=== PATIENT | male | born 1980 | race Caucasian/White ===

== ENCOUNTER 2020-10-19 14:31 | Emergency (ER) | payer OTHER, SELFPAY ==
--- NOTE | 2020-10-19 14:36 | ED.SKABFB ---
HPI - Skin/Abscess/Foreign Bdy General Chief complaint: Wound/Laceration Stated complaint: L HAND LACERATION Time Seen by Provider: 10/19/20 14:36 Source: patient and RN notes reviewed History of Present Illness HPI narrative: Patient is a 40-year-old male who presents the urgent care with complaints of a laceration to the knuckle of the left middle digit. Patient states that occurred just prior to arrival on an old esteban can that was outside. Patient states his main concern is having a tetanus shot. Patient is unsure when his last tetanus was. Denies of any other acute complaints or injuries. Patient placed in napkin over the injury prior to arrival and bleeding is currently controlled. No acute distress noted. Patient aware of the plan of care. Some parts of this dictation were generated by voice recognition software and may contain typographical and/or grammatical inaccuracies. Related Data Allergies Allergy/AdvReac Type Severity Reaction Status Date / Time No Known Allergies Allergy Verified 10/19/20 14:36 Review of Systems Review of Systems: Narrative: CONSTITUTIONAL: Denies fever, chills, or sweats. EYES: Denies visual changes, redness, or discharge. ENT: Denies rhinorrhea, congestion, sore throat, or otalgia. CARDIOVASCULAR: Denies chest pain, palpitations, or edema. RESPIRATORY: Denies cough or dyspnea. GASTROINTESTINAL: Denies abdominal pain, nausea, vomiting, or diarrhea. GENITOURINARY: Denies dysuria or hematuria. SKIN: Reports of a laceration to the left middle knuckle MUSCULOSKELETAL: Denies back pain, joint pain, or myalgia. NEUROLOGIC: Denies headache, numbness, or weakness. All other systems reviewed are negative, except as documented in HPI. [facility] Past Medical History Medical History (Updated 10/19/20 @ 14:44 by KATRINA Rosario) HLD (hyperlipidemia) Family History Family History Father Family history of diabetes mellitus in first degree relative Mother Family history of diabetes mellitus in first degree relative Family history of heart disease in male family member before age 55 Social History Social History Smoking status: Never smoker Alcohol intake: current Comments At the time of my signature, I reviewed and agree with the nursing past medical, surgical, social, and family history. There is no relevant family history pertinent to the patient complaint. Exam Narrative: Exam Narrative: GENERAL: This is a well-nourished, well-developed patient, appears anxious HEAD: normocephalic, atraumatic. EYES: PERRL. Sclera clear/white. Vision is grossly intact. EARS: External ears normal NOSE: External nose normal with no obvious nasal discharge, nares without redness, no rhinorrhea. THROAT: Mucous membranes moist NECK: Neck supple SKIN: Superficial 1 cm linear laceration to the MCP of the left middle digit, bleeding controlled prior to arrival. NEURO: awake, alert, and oriented to person, place and time. There were no obvious focal neurologic abnormalities. EXTREMITIES: No clubbing, cyanosis, or edema. Positive strong left radial pulse with capillary refill less than 2 seconds. Range of motion to left hand/fingers within normal limits. Course Vital Signs Vital signs: Vital Signs Temperature 97.5 F L 10/19/20 14:37 Pulse Rate 104 H 10/19/20 14:37 Respiratory Rate 10/19/20 14:37 Blood Pressure 118/84 10/19/20 14:37 Pulse Oximetry 100 10/19/20 14:37 Temperature 97.5 F L 10/19/20 14:37 Pulse Rate 104 H 10/19/20 14:37 Respiratory Rate 10/19/20 14:37 Blood Pressure 118/84 10/19/20 14:37 Pulse Oximetry 100 10/19/20 14:37 Reviewed Procedures Laceration Laceration 1: Site: hand (MCP of left middle digit) Side (If applicable): left Size (cm): 1 Description: linear Pre-repair: irrigated (Cleansed/irrigated
[2020-10-19 14:37] VITALS: BP 118/84; PULSE 104; RESP 20; TEMP 36.4; O2SAT 100
[2020-10-19] MEDS: TETANUS,DIPHTHERIA,AC PERTUSSIS ADULT (0.5 ML) BOOSTRIX IM (14:49)
== END 2020-10-19 15:22 | disposition home or self-care (01) ==
PROVIDERS: Emergency Provider Nurse Practitioner Family; PCP Emergency Medicine
DX: S61.213A Laceration without foreign body of left middle finger without damage to nail, initial encounter (principal); W45.8XXA Other foreign body or object entering through skin, initial encounter; Z23 Encounter for immunization; E78.5 Hyperlipidemia, unspecified
CPT/HCPCS: 12001; 90471; 90715; 99212; G0463

== ENCOUNTER 2021-09-06 10:36 | Emergency (ER) | payer OTHER, SELFPAY ==
--- NOTE | ~2021-09-06 | US_ITS ---
EXAMINATION: US scrotum doppler EXAM DATE: 09/06/2021 11:33 INDICATION: Left testicular injury, pain. TECHNIQUE: Multiple grayscale and Doppler images of the testicles and scrotum were obtained bilateral ly. There is no prior study for comparison. FINDINGS: Right testicle measures 4.4 x 3.5 x 2.7 cm and is morphologically normal. Low resistance Doppler brittany w confirmed. The epididymis is unremarkable. There is no hydrocele or varicocele. Left testicle measures 4.3 x 3.3 x 2.9 cm and is morphologically normal. Low resistance Doppler flow confirmed. The epididymis is unremarkable. There is no hydrocele or varicocele. IMPRESSION: No testicular rupture. Unremarkable testicular/scrotal ultrasound exam. Reviewed, dictated and finalized at location A. [employer]EL PLANT MANAGER IMPRESSION: No testicular rupture. Unremarkable testicular/scrotal ultrasound e xam.
--- NOTE | ~2021-09-06 | XR_ITS ---
EXAMINATION: XR abdomen/kub 1V EXAM DATE: 09/06/2021 13:11 INDICATION: Left flank pain. TECHNIQUE: Frontal projection of the upper abdomen, frontal projection lower abdomen/pelvis for inter pretation. Correlation is made to CT scan same date. FINDINGS: Left UPJ 7 mm stone identified, indicated. No other suspicious calcifications. Nonobstruct vicky bowel gas pattern. There are no osseous abnormalities identified. IMPRESSION: Left UPJ 7 mm stone. Reviewed, dictated and finalized at location A. TENDER IMPRESSION: Left UPJ 7 mm stone.
--- NOTE | ~2021-09-06 | CT_ITS ---
EXAMINATION: CT abdomen pelvis wo con EXAM DATE: 09/06/2021 12:24 INDICATION: left sided flank pain radiating to the abdomen. TECHNIQUE: Spiral CT of the abdomen and pelvis was performed without contrast. Axial, coronal and sag ittal images were reviewed. The dose-length product (DLP) for this examination was 843.68 mGy-cm. T he exposure was tailored according to patient size (auto mA exposure control), and iterative reconstr uction (ASIR) was used as additional dose reduction technique. Comparison is made to prior examinatio n from 07/30/2015. FINDINGS: There is a left ureteropelvic junction stone measuring 7 mm. There is mild left-sided hydro nephrosis. No other genitourinary calcifications. The prostate is unremarkable. The bladder is unre markable. There is hepatic steatosis without suspicious focal lesion identified. Spleen, adrenal gla nds, pancreas are unremarkable. Gallbladder is unremarkable. No biliary obstruction. There is no r etroperitoneal or pelvic lymphadenopathy. There are no findings to suggest appendicitis. The stomach and small bowel are unremarkable. There is expected amount of colonic stool. No free intraperitoneal gas. The heart is normal in size. T here are no pericardial or pleural effusions. The lung bases are unremarkable. There are no osteobl astic or osteolytic lesions identified. IMPRESSION: Left UPJ 7 mm stone, mild obstructive nephropathy. consultants would appreciate KUB as baseline. Reviewed, dictated and finalized at location A. OR ENERGY ANALYST IMPRESSION: Left UPJ 7 mm stone, mild obstructive nephropathy. consultants ngozi chavira appreciate KUB as baseline.
[2021-09-06 10:46] VITALS: BP 153/99; PULSE 76; RESP 20; TEMP 37; O2SAT 100
[2021-09-06 11:11] VITALS: BP 141/96; PULSE 75; RESP 17; O2SAT 98
--- NOTE | 2021-09-06 11:11 | ED.MALEGU ---
HPI - Male Genitourinary General Chief complaint: Unspecified Stated complaint: flank pain Time Seen by Provider: 09/06/21 10:58 Source: patient Mode of arrival: ambulatory Limitations: no limitations History of Present Illness HPI Narrative: This is a 41-year-old male that presents to the emergency department after an injury 3 days ago with left testicular pain. Reports his cat stepped on his testicle. Since he has been having pain in the area. Reports today the pain is started to radiate to the left flank. He took anti-inflammatories this morning with little relief. The pain is sharp in nature. Denies fever, vomiting, dysuria, hematuria. Related Data Allergies Allergy/AdvReac Type Severity Reaction Status Date / Time No Known Allergies Allergy Verified 08/05/21 15:55 Review of Systems Review of Systems: CONSTITUTIONAL: Denies fever GASTROINTESTINAL: Reports abdominal pain. Denies nausea, vomiting GENITOURINARY: Denies dysuria or hematuria. All systems reviewed & are unremarkable except as noted in HPI and below PMFSH Past Medical History Medical History (Updated 09/06/21 @ 14:40 by Simin Epstein PA-C) Diabetes mellitus HLD (hyperlipidemia) Family History Family History Father Family history of diabetes mellitus in first degree relative Mother Family history of diabetes mellitus in first degree relative Family history of heart disease in male family member before age 55 Social History Social History Smoking status: Never smoker Alcohol intake: current Exam Narrative: GENERAL: Well-appearing, well-nourished, and in no acute distress. HEAD: Normocephalic, atraumatic. EYES: EOMI. CHEST: Clear to auscultation. No respiratory distress. No wheezes rales or rhonchi HEART: Regular rate and rhythm. No murmur heard. Normal peripheral pulses. ABDOMEN: Soft, nontender, nondistended, normal active bowel sounds. EXTREMITIES: Normal range of motion. No edema. SKIN: Warm, dry, no rash. NEURO: No focal deficits. Alert and oriented x3. PSYCH: Normal mood and affect MALE GENITAL: Normal appearing genitalia. No testicular swelling or redness noted. No abnormal urethral discharge Course Consultations Consultation #1: Spoke with Dr. Camarena about patient and work-up. Patient will be given option to stay for pain control and stent placement, or to be discharged with pain medication and follow-up outpatient Date: 09/06/21 Time: 13:38 Vital Signs Vital signs: Vital Signs Temperature 98.6 F 09/06/21 10:46 Pulse Rate 76 09/06/21 10:46 Respiratory Rate 20 09/06/21 10:46 Blood Pressure 153/99 H 09/06/21 10:46 Pulse Oximetry 100 09/06/21 10:46 Temperature 98.6 F 09/06/21 10:46 Pulse Rate 75 09/06/21 11:11 Respiratory Rate 17 09/06/21 11:11 Blood Pressure 141/96 H 09/06/21 11:11 Pulse Oximetry 98 09/06/21 11:11 MDM - Male Genitourinary MDM Narrative Medical decision making narrative: Patient presents to the emergency department for left flank pain, also noting testicular injury. Patient's vitals are stable. He is afebrile and nontoxic-appearing. Testicular ultrasound is without acute findings. CBC is without leukocytosis. Metabolic panel without concerning findings. UA with greater than 75 red blood cells, and 16-[address] scan of the abdomen and pelvis shows a left UPJ 7 mm stone with mild obstructive nephropathy. Abdomen x-ray positively identifies the stone. Spoke with Dr. Camarena about patient and work-up. Patient will be given option to stay for pain control and stent placement, or to be discharged with pain medication and follow-up outpatient. Patient would like to be discharged for outpatient follow-up. He will be given urine strainer, Flomax, antibiotic and pain medication. He was given warnings to return to the ER Lab Data Attestation: I
[2021-09-06] MEDS: MORPHINE SULFATE (*CRX) 2 MG/ML INJ IV PUSH ×2 (11:44→13:40)
[2021-09-06] MEDS: ONDANSETRON INJ 4 MG/2 ML VIAL IV PUSH (11:44)
[2021-09-06 11:55] LABS: Basophils Percent Auto 0.5 % (0.2-1.2); Eosinophils Absolute Auto 0.1 K/mm3 (0-0.3); Eosinophils Percent Auto 1.6 % (0-4.4); Hemoglobin 14.7 g/dL (14.0-18.0); Immature Granulocyte Absolute 0.06 K/mm3 (0.00-0.031); Immature Granulocyte Percent A 0.8 % (0-0.5); Lymphocytes Absolute Auto 2.21 K/mm3 (0.9-3.2); Lymphocytes Percent Auto 27.9 % (18.3-44.2); Mean Corpuscular HGB Conc 36.8 g/dl (32-36); Mean Corpuscular Hemoglobin 29.5 pg (26-34); Mean Corpuscular Volume 80.3 fl (80-100); Mean Platelet Volume 9.5 fl (7.4-10.4); Monocytes Absolute Auto 0.6 K/mm3 (0.1-0.6); Monocytes Percent Auto 7.4 % (2.6-8.5); Neutrophils Absolute Auto 4.9 K/mm3 (1.3-6.7); Neutrophils Percent Auto 61.8 % (45.5-73.1); Platelet Count Result 235 k/mm3 (150-375); Red Blood Count 4.98 M/mm3 (4.6-6.20); Red Cell Distribution Width 11.9 % (11.5-14.5); White Blood Count 7.9 K/mm3 (4.5-10.0)
[2021-09-06 12:02] LABS: Anion Gap 15 mmol/L (8-16); Blood Urea Nitrogen 12 mg/dL (9-20); Calcium 9.8 mg/dL (8.4-10.2); Carbon Dioxide 20 mmol/L (22-30); Chloride 101 mmol/L (98-107); Estimated CRCL calculation 105 ml/min; Estimated Glomerular Filt Rate > 60; Glucose 277 mg/dL (65-110); Potassium 3.7 mmol/L (3.4-5.0); Sodium 136 mmol/L (137-145)
[2021-09-06 12:37] LABS: Add Urine Microscopic? YES; Amorphous Sediment Urine Few; Appearance Urine Cloudy (Clear); Bacteria Urine Trace /hpf; Bilirubin Urine Negative (Negative); Blood Urine 3+ (Negative); Color Urine Yellow (Yellow); Glucose Urine UA 3+ mg/dL (Negative); Ketones Urine Negative (Negative); Leukocyte Esterase Ur Negative LEU/UL (Negative); Mucus Urine Rare /lpf; Nitrate Urine Negative (Negative); Protein Urine 1+ mg/dL (Negative); RBC Urine >75 /hpf (0-2); Specific Grav Ur 1.017 (1.001-1.035); Urobilinogen Urine Negative mg/dL (<2.0); WBC Urine 16-20 /hpf
[2021-09-06 13:00] VITALS: BP 133/95; PULSE 75; RESP 18; O2SAT 97
== END 2021-09-06 14:58 | disposition home or self-care (01) ==
PROVIDERS: Physician Assistant; Emergency Provider Emergency Medicine; PCP Emergency Medicine
DX: N13.8 Other obstructive and reflux uropathy (principal); N20.1 Calculus of ureter; E11.9 Type 2 diabetes mellitus without complications; E78.5 Hyperlipidemia, unspecified; Z79.84 Long term (current) use of oral hypoglycemic drugs
CPT/HCPCS: 36415; 74018; 74176; 76870; 80048; 81001; 85025; 87086; 93976; 96374; 96375; 96376; 99284; J0131; J2270; J2405

== ENCOUNTER → 2022-05-04 13:05 | Outpatient (CLI) | payer OTHER, SELFPAY ==
--- NOTE | ~2022-05-04 | US_ITS ---
EXAMINATION: US retroperitoneal comp DATE: 05/04/2022 13:24 INDICATION: Left ureteral stone TECHNIQUE: Multiple ultrasound grayscale images of the kidneys were obtained. COMPARISON: CT abdomen pelvis dated 09/06/2021 FINDINGS: The right kidney measures 12.4 x 5.3 x 6.6 cm. The left kidney measures 12.5 x 6.3 x 5.6 cm. The kidn eys demonstrate normal echogenicity. There is no hydronephrosis in either kidney. No stones identifi ed. The bladder is normal. Diffuse increased hepatic echogenicity consistent with diffuse hepatic antonino atosis. IMPRESSION: 1. Normal kidneys without hydronephrosis. 2. Diffuse hepatic steatosis. Reviewed, dictated and finalized at location A.
== END ==
PROVIDERS: PCP Emergency Medicine; Visit Provider Urology
DX: N20.1 Calculus of ureter (principal); K76.0 Fatty (change of) liver, not elsewhere classified
CPT/HCPCS: 76770

== ENCOUNTER → 2023-01-07 14:54 | Outpatient (CLI) | payer BC, SELFPAY ==
--- NOTE | ~2023-01-07 | XR_ITS ---
Supine and upright views of the abdomen Clinical history: Ureteral stone COMPARISON: 09/06/2021 Findings: Bowel gas pattern is nonspecific. No evidence for obstruction or free air. No abnormal mass lesion or calcification is seen. Osseous structures are intact. Impression: No significant abnormality is seen. Reviewed, dictated and finalized at [facility]. Impression: No significant abnormality is seen.
--- NOTE | ~2023-01-07 | CT_ITS ---
EXAMINATION: CT abdomen pelvis wo con DATE: 01/07/2023 15:17 INDICATION: Ureteral calculus TECHNIQUE: Computed tomography (CT) of the abdomen and pelvis was performed without intravenous contr ast. Automated exposure control and iterative reconstruction technique were employed. Exam dose: 738 .33 mGy-cm total exam DLP. COMPARISON: 09/06/2021 CT abdomen pelvis FINDINGS: The lung bases are clear of infiltrate or consolidation. Heart size is normal. No pericardi al or pleural effusion. Diffuse hepatic steatosis. No hepatic, splenic, pancreatic, adrenal or renal space-occupying mass les ion is evident on this limited noncontrast examination. The gallbladder is present. No bile duct or pancreatic duct dilatation. There is a pinpoint calculus at the left ureterovesical junction. No other urinary tract calculus or hydroureteronephrosis. The urinary bladder is otherwise unremarkable. Normal prostate gland. Normal caliber of the abdominal aorta. No intraperitoneal or retroperitoneal or pelvic mass lesion or adenopathy or ascites. Occasional colonic diverticula; no CT evidence of diverticulitis. No bowel obstruction, bowel wall th ickening, pneumatosis or intraperitoneal free air. No evidence of appendicitis. Included skeletal structures are unremarkable. IMPRESSION: Incomplete left ureterovesical junction calculus Hepatic steatosis Minimal colonic diverticulosis Reviewed, dictated and finalized at Location A. Reviewed, dictated and finalized at location A.
== END ==
PROVIDERS: PCP Urology; Visit Provider Urology
DX: N20.1 Calculus of ureter (principal); K76.0 Fatty (change of) liver, not elsewhere classified
CPT/HCPCS: 74018; 74176

== ENCOUNTER → 2023-03-31 12:00 | Outpatient (CLI) | payer BC, SELFPAY ==
--- NOTE | ~2023-03-31 | US_ITS ---
EXAMINATION: US right upper quadrant DATE: 04/01/2023 14:43 INDICATION: R10.9 - Unspecified abdominal pain TECHNIQUE: Multiple grayscale and Doppler ultrasound images of the right upper quadrant were obtained . COMPARISON: Noncontrast CT abdomen and pelvis 01/07/2023. FINDINGS: Heterogeneous, nodular echotexture of the pancreas. The liver is enlarged with increased ec hogenicity and normal echotexture. No surface nodularity. Normal hepatopetal flow in the main portal vein. The gallbladder is normal with no abnormal wall thickening, pericholecystic fluid or stones. Th e common bile duct measures 3 mm. There was no sonographic Davis sign. IMPRESSION: Heterogeneous pancreatic echogenicity, correlate with pancreatic labs and consider CT of the pancreas for further evaluation. Echogenic liver, most commonly due to steatosis but also can be seen with he patitis and fibrosis. Reviewed, dictated and finalized at location K. IMPRESSION: Heterogeneous pancreatic echogenicity, correlate with pancreatic labs and consi luke CT of the pancreas for further evaluation. Echogenic liver, most commonly d ue to steatosis but also can be seen with hepatitis and fibrosis.
== END ==
PROVIDERS: PCP Emergency Medicine; Visit Provider Emergency Medicine
DX: R10.9 Unspecified abdominal pain (principal)
CPT/HCPCS: 76705

== ENCOUNTER 2023-05-14 13:40 | Outpatient (CLI) | payer BC, SELFPAY ==
--- NOTE | ~2023-05-14 | XR_ITS ---
XR abdomen/kub 1V 05/14/2023 14:12 INDICATION: Left ureteral stone TECHNIQUE: KUB COMPARISON: 01/07/2023 FINDINGS: Bowel gas pattern is normal. There is no evidence of free air, mass, organomegaly, ascites or obstruction. No abnormal calculi are seen. The bones appear intact. IMPRESSION: 1: No acute abdominal abnormality identified. Reviewed, dictated and finalized at location A.
--- NOTE | ~2023-05-14 | US_ITS ---
US retroperitoneal comp 05/14/2023 14:14 Procedure: Realtime transabdominal ultrasound of the kidneys and bladder. Indication: Ureteral stone Comparison: 03/31/2023 Findings: Renal echotexture is normal bilaterally without hydronephrosis, contour deforming mass. The re is an echogenic focus in the right kidney measuring 5 mm, suspicious for nonobstructing right martin l stone. The right kidney measures 12.6 cm and left kidney measures 12.2 cm. Bladder within normal l imits. Impression: 1: Possible 5 mm nonobstructing right renal stone. Consider correlation with CT. Reviewed, dictated and finalized at location A. Impression: 1: Possible 5 mm nonobstructing right renal stone. Consider correlation with CT .
== END 2023-05-14 13:41 | disposition home or self-care (01) ==
PROVIDERS: PCP Emergency Medicine; Visit Provider Urology
DX: N20.1 Calculus of ureter (principal)
CPT/HCPCS: 74018; 76770

== ENCOUNTER 2023-06-25 03:58 | Day surgery (SDC) | payer BC, SELFPAY ==
[2023-06-11 15:39] VITALS: BMI 29.1
[2023-06-25 07:43] VITALS: BP 126/93; PULSE 81; RESP 18; TEMP 36.4; O2SAT 100; BMI 29.1
[2023-06-25] MEDS: LACTATED RINGERS 1,000 ML 150 ML IV CONT (07:45)
[2023-06-25 07:56] LABS: Glucose Point of Care 196 mg/dl (65-105)
--- NOTE | 2023-06-25 08:08 | WPDANESEPPF ---
Anes - Initial Pre Proc Eval Procedure: Operation Date: 06/25/23 08:30 Proposed Procedures p Esophagogastroduodenoscopy - Daniel Vela MD Date/Time: 06/25/23 08:08 Surgeon: Daniel Vela MD Pre Op Diagnosis: Belching, GERD Patient Data Age: 43 Gender: M Height: 1.75 m Weight: 89.5 kg Last Vital Signs Temp 97.6 F 06/25/23 07:43 Pulse 81 06/25/23 07:43 Resp 18 06/25/23 07:43 BP 126/93 H 06/25/23 07:43 Pulse Ox 100 06/25/23 07:43 O2 Del Method Room Air 06/25/23 07:43 Allergies Allergy/AdvReac Type Severity Reaction Status Date / Time No Known Allergies Allergy Verified 06/25/23 07:41 Home Medications Medication Instructions Recorded Confirmed Type blood sugar diagnostic (OneTouch #100 ea 08/08/21 06/25/23 Rx Verio test strips) sitagliptin phosphate 50 mg tablet 50 mg PO DAILY #90 tabs 07/27/22 06/25/23 Rx (Januvia) niacin 1,000 mg tablet,extended See Rx Instructions .Route 11/03/22 06/25/23 Rx release .COMPLEX #90 tabs simvastatin 20 mg tablet 20 mg PO DAILY #90 tabs 11/04/22 06/25/23 Rx semaglutide 1 mg/dose (4 mg/3 mL) 1 mg (0.75 mL) subcut WEEKLY #12 mL 03/05/23 06/25/23 Rx subcutaneous pen injector (Ozempic) fenofibrate nanocrystallized 145 See Rx Instructions .Route 05/03/23 06/25/23 Rx mg tablet .COMPLEX #90 tabs metformin 1,000 mg tablet See Rx Instructions .Route 05/03/23 06/25/23 Rx .COMPLEX #180 tabs apple cider vinegar 500 mg tablet 500 - 1,000 mg PO DAILY 06/11/23 06/25/23 History multivitamin 1 tablet PO DAILY 06/11/23 06/25/23 History omega-3 fatty acids-vitamin E 1 cap PO DAILY 06/11/23 06/25/23 History 1,000 mg capsule Laboratory Tests 06/25/23 07:54 POC Capillary Glucose 196 H mg/dl (65-105) Patient hx anesthesia problems: none Family hx anesthesia problems: none Results Review: All pre-operative results and documents have been reviewed as part of the pre-operative evaluation. [facility] Past Medical History Medical History Diabetes mellitus HLD (hyperlipidemia) Family History Family History Father Family history of diabetes mellitus in first degree relative Mother Family history of diabetes mellitus in first degree relative Family history of heart disease in male family member before age 55 Social History Social History Smoking status: Never smoker Alcohol intake: current Substance use: never Substance use type: does not use Lack of Transportation: No Lack of Food: Never True Current Housing: I Have Housing Concerned About Future Housing: No Difficulty Paying Gas/Electric Bills: No Difficulty Paying for Meds: No Currently Unemployed: No Education: Decline to Answer Difficulty w/ Childcare or Family Care: No Living arrangements: with family Spiritual care concerns: No Anes - Eval Final PreProcedure Day of Procedure 06/25/23 08:08 Patient weight: obese Heart: regular rate and rhythm Lungs: clear to auscultation Airway: Mallampati scale class II Neurological: alert and oriented Last oral intake: >/= 8 hours ASA classification: II Emergent: no Anesthetic plan: proceed Anesthesia type and monitoring: general GIVS and standard monitoring Results Review: All pre-operative results and documents have been reviewed as part of the pre-operative evaluation. Informed Consent: The patient's anesthetic plan and its attendant risks and benefits were discussed with the patient/family/POA. Questions were solicited and answers provided to the satisfaction of the patient/family/POA.
--- NOTE | 2023-06-25 08:20 | PM.HPGS ---
History of Present Illness History of Present Illness Consent: Risks, benefits, and alternatives have been discussed and questions answered. Patient agrees to proceed with procedure. Chief complaint: Belching, GERD Narrative: Vern Andrews is a 43 year old male Presents for EGD. Patient complains of excess belching. He complains of abdominal bloating. Epigastric discomfort. Sometimes the belches are foul smelling. Patient presents today for EGD. Patient denies any weight loss. Recently advised to have gastric emptying scan this not yet been accomplished. Review of Systems Review of Systems: Review of systems noncontributory. [facility] Past Medical History Medical History Diabetes mellitus HLD (hyperlipidemia) Family History Family History Father Family history of diabetes mellitus in first degree relative Mother Family history of diabetes mellitus in first degree relative Family history of heart disease in male family member before age 55 Social History Social History Smoking status: Never smoker Alcohol intake: current Substance use: never Substance use type: does not use Lack of Transportation: No Lack of Food: Never True Current Housing: I Have Housing Concerned About Future Housing: No Difficulty Paying Gas/Electric Bills: No Difficulty Paying for Meds: No Currently Unemployed: No Education: Decline to Answer Difficulty w/ Childcare or Family Care: No Living arrangements: with family Spiritual care concerns: No Meds Home Medications and Allergies Home Medications Medication Instructions Recorded Confirmed Type blood sugar diagnostic (OneTouch #100 ea 08/08/21 06/25/23 Rx Verio test strips) sitagliptin phosphate 50 mg tablet 50 mg PO DAILY #90 tabs 07/27/22 06/25/23 Rx (Januvia) niacin 1,000 mg tablet,extended See Rx Instructions .Route 11/03/22 06/25/23 Rx release .COMPLEX #90 tabs simvastatin 20 mg tablet 20 mg PO DAILY #90 tabs 11/04/22 06/25/23 Rx semaglutide 1 mg/dose (4 mg/3 mL) 1 mg (0.75 mL) subcut WEEKLY #12 mL 03/05/23 06/25/23 Rx subcutaneous pen injector (Ozempic) fenofibrate nanocrystallized 145 See Rx Instructions .Route 05/03/23 06/25/23 Rx mg tablet .COMPLEX #90 tabs metformin 1,000 mg tablet See Rx Instructions .Route 05/03/23 06/25/23 Rx .COMPLEX #180 tabs apple cider vinegar 500 mg tablet 500 - 1,000 mg PO DAILY 06/11/23 06/25/23 History multivitamin 1 tablet PO DAILY 06/11/23 06/25/23 History omega-3 fatty acids-vitamin E 1 cap PO DAILY 06/11/23 06/25/23 History 1,000 mg capsule Allergies Allergy/AdvReac Type Severity Reaction Status Date / Time No Known Allergies Allergy Verified 06/25/23 07:41 Vital Signs Vital Signs - 24 hr 06/25/23 07:43 Temperature 97.6 F Pulse Rate 81 Respiratory Rate 18 Blood Pressure 126/93 H Pulse Oximetry 100 Oxygen Delivery Room Air Exam Narrative: Physical exam reveals patient to be alert. Vital signs stable. HEENT exam is unremarkable. Patient is anicteric. Lungs are clear to auscultation and percussion. Heart is without murmur or extra sounds. Abdomen bowel sounds are present soft nontender with no organomegaly. Assessment and Plan Assessment and plan (1) Belching: Code(s): R14.2 - Eructation Status: Acute Assessment and Plan: Because of patient's frequent belching and eructations will plan gastric emptying scan. EGD to be performed today. Recommend trial of Gas-X and the Prilosec to be taken daily. Gastric emptying scan will be performed after this is accomplished trial of Reglan may be of some help. (2) GERD (gastroesophageal reflux disease): Code(s): K21.9 - Gastro-esophageal reflux disease without esophagitis Status: Acute
[2023-06-25 08:44] VITALS: BP 122/82; PULSE 82; RESP 18; O2SAT 97
[2023-06-25 08:54] VITALS: BP 123/86; PULSE 70; RESP 18; O2SAT 96
[2023-06-25 09:04] VITALS: BP 126/91; PULSE 80; RESP 18; O2SAT 97
== END 2023-06-25 09:12 | disposition home or self-care (01) ==
PROVIDERS: PCP Emergency Medicine; Visit Provider Internal Medicine Gastroenterology
PROC: 0DJ08ZZ Inspection of Upper Intestinal Tract, Via Natural or Artificial Opening Endoscopic (ICD-10-PCS; CPT 43235; principal; 2023-06-25 08:30)
DX: K21.00 Gastro-esophageal reflux disease with esophagitis, without bleeding (principal); K31.84 Gastroparesis; E11.9 Type 2 diabetes mellitus without complications; E78.5 Hyperlipidemia, unspecified; Z79.899 Other long term (current) drug therapy; Z79.84 Long term (current) use of oral hypoglycemic drugs; E66.9 Obesity, unspecified; Z68.29 Body mass index [BMI] 29.0-29.9, adult
CPT/HCPCS: 43235; 82948; J2704; J7120

== ENCOUNTER 2023-07-09 07:53 | Outpatient (CLI) | payer BC, SELFPAY ==
--- NOTE | ~2023-07-09 | NM_ITS ---
EXAM: NM gastric emptying study DATE: 07/09/2023 13:13 INDICATION: Eructation. Bloating. TECHNIQUE: A gastric emptying study was performed using the methodology of Shannon FLOWERS, et al. J Nucl Med 2007; 48:568-572. The patient was given a meal consisting of 2 scrambled eggs labeled with 0.962 mCi Tc-99m sulfur colloid, 2 slices of toast, two packages of jam, and approximately 120 mL of water . Simultaneous anterior and posterior 1-min images of the abdomen were obtained with the patient supi ne at multiple time points over a total period of 4 hours. The geometric mean of anterior and posteri or views was determined, and the percentage retention was calculated for each time point. COMPARISON: None. FINDINGS: Gastric retention of the radiotracer-labeled meal was 56%, 52%, and 28% at the 1-hour, 2-hour, and 4- hour time points, respectively. With this technique, apparent rapid gastric emptying is suggested by <30% gastric retention at 1 hour. Delayed gastric emptying is defined by gastric retention of >90% at 1 hour, >60% retention at 2 hours, or >10% retention at 4 hours. IMPRESSION: 1. Delayed gastric emptying. Reviewed, dictated and finalized at location A.
== END 2023-07-09 07:54 | disposition home or self-care (01) ==
PROVIDERS: PCP Emergency Medicine; Visit Provider Internal Medicine Gastroenterology
DX: E11.9 Type 2 diabetes mellitus without complications (principal); R14.2 Eructation; K30 Functional dyspepsia
CPT/HCPCS: 78264; A9541

== ENCOUNTER 2025-05-07 01:27 | Day surgery (SDC) | payer BC, SELFPAY ==
[2025-03-30 12:43] VITALS: BMI 29.2
--- OUTSIDE RECORDS SUMMARY | 2025-05-07 01:30 | XMS_ITS | Clinical Summary ---
Author Organization [facility] Address [facility] [place] [address] Care Team Providers Care Yard Associate Name Role Phone Edgar Rizo MD Primary Care Provider [phone] Social History Tobacco Use Types Packs/Day Years Used Date Smoking Tobacco: Never Assessed Sex and Gender Information Value Date Recorded Sex Assigned at Not on file Legal Sex Male 11:37 AM CDT Gender Identity Not on file Sexual Orientation Not on file Plan of Treatment Health Maintenance Due Date Last Done Comments Colorectal Cancer Screening Colonoscopy (10 Years) 1979 Annual Physical 1982 Hepatitis C 1997 Hepatitis B Vaccines (1 of 3 - 19+ 3-dose series) 1998 COVID-19 Vaccine (2023-2 5 season) 2024 07/24/2022, 08/18/2021, 12/23/2020 DTaP, Tdap and Td Vaccines ( 2 - Td or Tdap) 10/19/2030 10/19/2020 HPV Vaccines Aged Out No longer eligi ble based on patient's age to complete this topic Meningococcal B Vaccine Aged Out No l onger eligible based on patient's age to complete this topic Meningococcal Vaccine Aged Out No phu pankaj eligible based on patient's age to complete this topic Pneumococcal Vaccine: Pediatrics (0 to 5 Years) and At-Risk Patients (6 to 49 Years) Aged Out No longer eligible b ased on patient's age to complete this topic RSV Immunizations Under 20 Months Aged Out No longer eligible b ased on patient's age to complete this topic Insurance [facility] Care Teams Yard Associate Relationship Specialty Start Date End Date Edgar Rizo MD [address] [address] PCP - General INTERNAL MEDICINE 03/24/24
--- OUTSIDE RECORDS SUMMARY | 2025-05-07 01:30 | XMS_ITS | Clinical Summary ---
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 Gender Identity Not on file Sexual Orientation Not on file Plan of Treatment Health Maintenance Due Date Last Done Comments Hepatitis C Virus (HCV) Screening 1979 Hepatitis B Immunization (1 of 3 - 19+ 3-dose series) 1998 Colonoscopy 2024 Colorectal Cancer Screening 2024 Influenza Immunization (#1) 2024 SARS-COV-2 Immunization (2023-25 season) 2024 08/18/2021, 12/23/2020 Respiratory Syncytial Virus (RSV) Immunization (Adult) (1 - 1-dose 75+ series) 2054 DTaP/Tdap/Td Immunization Discontinued 10/19/2020 TdaP Immunization Completed 10/19/2020 Meningococcal Immunization (ACWY) Aged Out No longer eligible based on patient's age to complete this topic Pneumococcal Immunization Combined Aged Out No longer eligible based on patient's age to complete this topic Rotavirus Immunization Aged Out No lo nger eligible based on patient's age to complete this topic
--- OUTSIDE RECORDS SUMMARY | 2025-05-07 01:30 | XMS_ITS | Clinical Summary ---
Author Organization [facility] Address [address] [facility] [place] [address] Care Team Providers Care Inspector Open Die Name Role Phone Edgar Rizo MD Primary Care Provider [phone] Source Comments [facility],non-owned Affiliates and Associated Physician Practices is amultiple site organization consisting of ambulatory clinics and hospital sitesin [place], [place], [place]. This disclosure is being madepursuant to the Care Everywhere program and may not contain all information available regarding this patient. Last updated 18.[facility] Allergies No known active allergies Medications * Be aware that medications may not be up to date on this document. Alwaysverify current medications with the patient. fenofibrate (LIPOFEN) 150 MG capsule Take 150 mg by mouth daily with breakfast Active simvastatin (ZOCOR) 5 MG tablet Take 5 mg by mouth at bedtime Active niacin CR (NIASPAN) 1000 MG tablet Take 1,000 mg by mouth at bedtime Active triamcinolone acetonide (KENALOG) 0.1 % creamIndication s:Atopic Dermatitis Apply to affected area 2 times daily Reasons: Atopic Dermatitis 80 g 7 Active predniSONE (DELTASONE) 20 MG tabletIndicatio ns:contact dermatitis Take three tablets PO once daily x 3 days, 2 tablets daily x 3 days, one tablet daily x 2 days Reasons: contact dermatitis 17 Tab 7 Active Social History Tobacco Use Types Packs/Day Years Used Date Smoking Tobacco: Never Smokeless Tobacco: Never Sex and Gender Information Value Date Recorded Sex Assigned at Not on file Legal Sex Male 11:55 AM CDT Gender Identity Not on file Sexual Orientation Not on file Last Filed Vital Signs Vital Sign Reading Time Taken Comments Blood Pressure 132/78 04/02/2017 12:14 PM CDT Pulse 68 04/02/2017 12:14 PM CDT Temperature 36.8 C (98.3 F) 04/02/2017 12:14 PM CDT Respiratory Rate 16 04/02/2017 12:14 PM CDT Oxygen Saturation - - Inhaled Oxygen Concentration - - Weight - - Height - - Body Mass Index - - Plan of Treatment Health Maintenance Due Date Last Done Comments COLOGUARD (AGES 45-75) - COL ON CA SCREENING 1979 COLON MONITORING 1979 COLONOSCOPY - COLON CA SCREENING 1979 CT COLONOGRAPHY - COLON CA SCREENING 1979 Colorectal Cancer Screening 1979 FIT - COLON CA SCREENING 1979 FLEX SIG - COLON CA SCREENING 1979 HIV SCREENING 1994 HEPATITIS C SCREENING 04/20/1997 DTAP/TDAP/TD VACCINES (1 - Tdap) 1998 HEPATITIS B VACCINE (1 of 3 - 19+ 3-dose series) 1998 COVID-19 VACCINE ( - 2023-2 5 season) 2024 DEPRESSION SCREENING 10/18/2024 INFLUENZA VACCINE (#1) 2025 ZOSTER VACCINE (1 of 2) 2029 HIB VACCINE Aged Out No longer eligi ble based on patient's age to complete this topic HPV VACCINE Aged Out No longer eligi ble based on patient's age to complete this topic MENINGOCOCCAL (Group B) VACC INE SHARED DECISION-MAKING Aged Out No longer eligibl e based on patient's age to complete this topic MENINGOCOCCAL GROUPS A/C/Y/W VACCINE Aged Out No longer eligible b ased on patient's age to complete this topic PNEUMOCOCCAL VACCINE Aged Out No long er eligible based on patient's age to complete this topic Insurance [address] [address] Care Teams Inspector Open Die Relationship Specialty Start Date End Date Edgar Rizo MD [address] [place] [id number] PCP - General Internal Medicine 04/02/17
[2025-05-07 07:22] VITALS: BP 114/88; PULSE 95; RESP 16; TEMP 36.2; O2SAT 100; BMI 28.6
[2025-05-07] MEDS: LACTATED RINGERS 1,000 ML 150 ML IV CONT (07:46)
--- NOTE | 2025-05-07 08:09 | P.PNAN_ITS ---
Anes - Initial Pre Proc Eval Procedure: Operation Date: 05/07/25 09:00 Proposed Procedures p Screening Colonoscopy - Carlos Brown MD Date/Time: 05/07/25 08:09 Surgeon: Carlos Brown MD Pre Op Diagnosis: Screening Patient Data Age: 45 Gender: M Height: 1.75 m Weight: 88 kg Last Vital Signs Temp 97.1 F L 05/07/25 07:22 Pulse 95 05/07/25 07:22 Resp 16 05/07/25 07:22 BP 114/88 05/07/25 07:22 Pulse Ox 100 05/07/25 07:22 O2 Del Method Room Air 05/07/25 07:22 Allergies Allergy/AdvReac Type Severity Reaction Status Date / Time No Known Allergies Allergy Verified 05/07/25 07:28 Home Medications ?Medication ?Instructions ?Recorded ?Confirmed ?Type blood sugar diagnostic (OneTouch #100 ea 08/08/21 12/20/24 Rx Verio test strips) multivitamin 1 tablet PO DAILY 06/11/23 05/07/25 History omega-3 fatty acids-vitamin E 1 cap PO DAILY 06/11/23 05/07/25 History 1,000 mg capsule blood-glucose sensor ([employer]excom G7 #1 ea 07/18/24 12/20/24 Rx Sensor device) fenofibrate nanocrystallized 145 145 mg PO DAILY #90 tabs 10/20/24 05/07/25 Rx mg tablet metformin 1,000 mg tablet 1,000 mg PO BID #180 tabs 10/20/24 05/07/25 Rx semaglutide 2 mg/dose (8 mg/3 mL) 2 mg (0.75 mL) subcut WEEKLY #12 mL 10/24/24 05/07/25 Rx subcutaneous pen injector (Ozempic) fenofibrate nanocrystallized 145 145 mg PO DAILY #30 tabs 12/22/24 05/07/25 Rx mg tablet niacin 1,000 mg tablet,extended 1,000 mg PO ONCE #90 tabs 01/18/25 05/07/25 Rx release 24 hr simvastatin 40 mg tablet 40 mg PO DAILY #90 tabs 01/18/25 05/07/25 Rx sitagliptin phosphate 50 mg tablet 50 mg PO DAILY #90 tabs 01/18/25 05/07/25 Rx (Januvia) pantoprazole 40 mg tablet,delayed 40 mg PO DAILY #90 tabs 04/24/25 05/07/25 Rx release Laboratory Tests 05/07/25 07:37 POC Capillary Glucose 169 H mg/dl (65-105) Patient hx anesthesia problems: none Family hx anesthesia problems: none Results Review: All pre-operative results and documents have been reviewed as part of the pre- operative evaluation. [facility], [facility] Past Medical History Medical History Skin lesion Obesity Colon cancer screening GERD with esophagitis Diabetes mellitus HLD (hyperlipidemia) Family History Family History Father Family history of diabetes mellitus in first degree relative Acute myocardial infarction Mother Family history of diabetes mellitus in first degree relative Family history of heart disease in male family member before age 55 Social History Social History (Updated 12/20/24 @ 11:51 by Sayra Vallecillo MA) Smoking status: Never smoker Alcohol intake: current Alcohol use details: rarely Substance use: never Substance use type: does not use Do You Feel Safe in your Home?: Yes Lack of Transportation: No Lack of Food: Never True Current Housing: I Have Housing Concerned About Future Housing: No Difficulty Paying Gas/Electric Bills: No Difficulty Paying for Meds: No Currently Unemployed: No Education: Decline to Answer Difficulty w/ Childcare or Family Care: No Living arrangements: with family Spiritual care concerns: No Anes - Eval Final PreProcedure Day of Procedure 05/07/25 08:09 Patient weight: normal Heart: regular rate and rhythm Lungs: clear to auscultation Airway: Mallampati scale class II Neurological: alert and oriented Last oral intake: >/= 8 hours ASA classification: III Emergent: no Anesthetic plan: proceed Anesthesia type and monitoring: general GIVS and standard monitoring Results Review: All pre-operative results and documents have been reviewed as part of the pre-operative evaluation. Informed Consent: The patient's anesthetic plan and its attendant risks and benefits were discussed with the patient/family/POA. Questions were solicited and answers provided to the satisfaction of the patient/family/POA.
--- NOTE | 2025-05-07 08:27 | P.HP_ITS ---
H&P: HPI History of Present Illness Date/Time: 05/07/25 08:27 Chief Complaint: Screening colonoscopy Narrative: This is the patient's first colonoscopy. There are no GI symptoms and there is no family history of colorectal cancer. Review of Systems Review of Systems: All systems reviewed & are unremarkable except as noted in HPI and below PMFSH Past Medical History Medical History Skin lesion Obesity Colon cancer screening GERD with esophagitis Diabetes mellitus HLD (hyperlipidemia) Family History Family History Father Family history of diabetes mellitus in first degree relative Acute myocardial infarction Mother Family history of diabetes mellitus in first degree relative Family history of heart disease in male family member before age 55 Social History Social History (Updated 12/20/24 @ 11:51 by Sayra Vallecillo MA) Smoking status: Never smoker Alcohol intake: current Alcohol use details: rarely Substance use: never Substance use type: does not use Do You Feel Safe in your Home?: Yes Lack of Transportation: No Lack of Food: Never True Current Housing: I Have Housing Concerned About Future Housing: No Difficulty Paying Gas/Electric Bills: No Difficulty Paying for Meds: No Currently Unemployed: No Education: Decline to Answer Difficulty w/ Childcare or Family Care: No Living arrangements: with family Spiritual care concerns: No Meds Home Medications and Allergies Home Medications ?Medication ?Instructions ?Recorded ?Confirmed ?Type blood sugar diagnostic (OneTouch #100 ea 08/08/21 12/20/24 Rx Verio test strips) multivitamin 1 tablet PO DAILY 06/11/23 05/07/25 History omega-3 fatty acids-vitamin E 1 cap PO DAILY 06/11/23 05/07/25 History 1,000 mg capsule blood-glucose sensor ([employer] G7 #1 ea 07/18/24 12/20/24 Rx Sensor device) fenofibrate nanocrystallized 145 145 mg PO DAILY #90 tabs 10/20/24 05/07/25 Rx mg tablet metformin 1,000 mg tablet 1,000 mg PO BID #180 tabs 10/20/24 05/07/25 Rx semaglutide 2 mg/dose (8 mg/3 mL) 2 mg (0.75 mL) subcut WEEKLY #12 mL 10/24/24 05/07/25 Rx subcutaneous pen injector (Ozempic) fenofibrate nanocrystallized 145 145 mg PO DAILY #30 tabs 12/22/24 05/07/25 Rx mg tablet niacin 1,000 mg tablet,extended 1,000 mg PO ONCE #90 tabs 01/18/25 05/07/25 Rx release 24 hr simvastatin 40 mg tablet 40 mg PO DAILY #90 tabs 01/18/25 05/07/25 Rx sitagliptin phosphate 50 mg tablet 50 mg PO DAILY #90 tabs 01/18/25 05/07/25 Rx (Januvia) pantoprazole 40 mg tablet,delayed 40 mg PO DAILY #90 tabs 04/24/25 05/07/25 Rx release Allergies Allergy/AdvReac Type Severity Reaction Status Date / Time No Known Allergies Allergy Verified 05/07/25 07:28 Vital Signs Vital Signs - 24 hr 05/07/25 07:22 Temperature 97.1 F L Pulse Rate 95 Respiratory Rate 16 Blood Pressure 114/88 Pulse Oximetry 100 Oxygen Delivery Room Air Exam Const: General: cooperative and healthy appearing Resp: Effort & Inspection: normal respiratory effort and able to speak in complete sentences Auscultation: clear to auscultation bilaterally Cardio: Rate: regular rate Rhythm: regular rhythm GI: Inspection: normal to inspection GI Palp: No No hepatosplenomegaly present Auscultation: normal bowel sounds Rectal Exam: deferred Skin: General skin exam: normal color Psych: Appearance: grossly normal Mental Status: mental status grossly normal Assessment and Plan Assessment and plan (1) Colon cancer screening: Code(s): Z12.11 - Encounter for screening for malignant neoplasm of colon Status: Acute Assessment and Plan: The patient is deemed a good candidate for the procedure. Consent signed. Will proceed.
[2025-05-07 08:47] VITALS: BP 115/79; PULSE 83; RESP 15; O2SAT 93
[2025-05-07 08:57] VITALS: BP 112/75; PULSE 81; RESP 15; O2SAT 94
[2025-05-07 09:07] VITALS: BP 113/79; PULSE 89; RESP 20; O2SAT 95
== END 2025-05-07 09:18 | disposition home or self-care (01) ==
PROVIDERS: PCP Emergency Medicine; Referring Provider Nurse Practitioner; Visit Provider Internal Medicine Gastroenterology
PROC: 0DJD8ZZ Inspection of Lower Intestinal Tract, Via Natural or Artificial Opening Endoscopic (ICD-10-PCS; CPT 45378; principal; 2025-05-07 09:00)
DX: Z12.11 Encounter for screening for malignant neoplasm of colon (principal); E11.9 Type 2 diabetes mellitus without complications
CPT/HCPCS: 45378; 82948; J2003; J2704; J7120

== ENCOUNTER 2025-07-21 10:47 | Inpatient (IN) | payer BC, SELFPAY ==
--- NOTE | ~2025-07-21 | CT_ITS ---
CT abdomen pelvis w con Clinical History: abdominal pain umbilical hernia . Comparison: CT abdomen and pelvis 01/07/2023 Technique: Axial images lung bases to symphysis pubis IV contrast information not listed in PACS Coronal, sagittal reformats CT images acquired with automatic exposure control for dose reduction DLP: 967 mGy-cm Findings: Lung bases: Clear. Visualized heart and pericardium: Unremarkable. Liver: Enlarged. Steatosis. Gallbladder: Unremarkable. Spleen: Unremarkable. Pancreas: Unremarkable. Adrenal glands: Unremarkable. Kidneys: Right kidney- No hydronephrosis. Tiny stone. Left kidney- No hydronephrosis. 3 mm stone. Distal esophagus/stomach: Unremarkable. Small bowel loops: Normal caliber and wall thickness. Colon: Diverticula. Normal caliber and wall thickness. Normal RLQ appendix. Nodes: No enlarged nodes. Peritoneum: No ascites. No free air. Urinary bladder: Unremarkable. Prostate: Unremarkable. Bones: No acute bony abnormality. Soft tissues: Umbilical hernia with fat, and extensive regional fat stranding. Aorta: No aneurysm or dissection. IVC: Unremarkable. Main portal vein/SMV/splenic vein: Patent. IMPRESSION: 1. Umbilical hernia with strangulation of herniated fat causing significant inflammation intra and extraperitoneal. 2. Nonacute findings as above. Reviewed, dictated and finalized at location R. IMPRESSION: 1. Umbilical hernia with strangulation of herniated fat causing significant in flammation intra and extraperitoneal. 2. Nonacute findings as above.
[2025-07-21 10:53] VITALS: BP 146/102; PULSE 88; RESP 18; TEMP 36.5; O2SAT 99
--- OUTSIDE RECORDS SUMMARY | 2025-07-21 11:28 | XMS_ITS | Clinical Summary ---
Author Organization [facility] Address [facility] [place] [address] Care Team Providers Care Personal Injury Litigation Paralegal Name Role Phone Edgar Rizo MD Primary Care Provider [phone] Social History Tobacco Use Types Packs/Day Years [...] - 19+ 3-dose series) 1998 COVID-19 Vaccine (2024-2 6 season) 2025 07/24/2022, 08/18/2021, 12/23/2020 Influenza Adult (#1) 2025 07/24/2022 DTaP, Tdap and Td Vaccines ( 2 - Td or Tdap) 10/19/2030 10/19/2020 Meningococcal B Vaccine Aged Out No l [...] patient's age to complete this topic Insurance [facility] Care Teams Personal Injury Litigation Paralegal Relationship Specialty Start Date End Date Edgar Rizo MD [address] [place] [id number] PCP - General INTERNAL MEDICINE 03/24/24
--- OUTSIDE RECORDS SUMMARY | 2025-07-21 11:28 | XMS_ITS | Clinical Summary ---
Author Organization [facility] Address [address] [place] [address] Care Team Providers Care Director Of Email Marketing Name Role Phone Edgar Rizo MD Primary Care Provider Source Comments [facility],non-owned Affiliates and Associated Physician Practices is amultiple site organization consisting of ambulatory clinics and hospital sitesin [place], [place], [place] and [place]. This disclosure is being madepursuant to the Care Everywhere program and may not contain all information available regarding this patient. Last updated 18.[facility] Allergies No known active allergies Medications * [...] of 3 - 19+ 3-dose series) 1998 DEPRESSION SCREENING 10/18/2024 COVID-19 VACCINE (1 - 2023-2 5 season) 2025 INFLUENZA VACCINE (#1) 2025 ZOSTER VACCINE (1 [...] patient's age to complete this topic Insurance [place] [address] [place] [address] Care Teams Director Of Email Marketing Relationship Specialty Start Date End Date Edgar Rizo MD [address] [place] [id number] PCP - General Internal Medicine 04/02/17
[2025-07-21 11:30] LABS: Hematocrit 40.0 % (42.0-52.0); Hemoglobin 13.8 g/dL (14.0-18.0); Immature Granulocyte Percent A 0.6 % (0-0.5); Lymphocytes Absolute Auto 2.24 K/mm3 (0.9-3.2); Mean Corpuscular HGB Conc 34.5 g/dl (32-36); Mean Corpuscular Hemoglobin 27.9 pg (26-34); Mean Corpuscular Volume 80.8 fl (80-100); Nucleated Red Blood Cells Absolute Auto 0.000 K/mm3 (0.0-0.012); Nucleated Red Blood Cells Perc 0.0 % (0.0-0.2); Platelet Count Result 217 k/mm3 (150-375); Red Blood Count 4.95 M/mm3 (4.6-6.20); White Blood Count 7.8 K/mm3 (4.5-10.0)
[2025-07-21 11:35] LABS: Add Urine Microscopic? YES; Appearance Urine Turbid (Clear); Glucose Urine UA 2+ mg/dL (Negative); Leukocyte Esterase Ur Negative LEU/UL (Negative); Nitrate Urine Negative (Negative); Non Pathogenic Casts 0-2; Specific Grav Ur 1.029 (1.001-1.035)
[2025-07-21] MEDS: ONDANSETRON INJ 4 MG/2 ML VIAL IV PUSH (11:41)
[2025-07-21] MEDS: HYDROmorphone HCL INJ (*CRX) 1 MG/ML SYR IV PUSH (11:42)
[2025-07-21 11:44] LABS: Alanine Aminotransferase 42 U/L (6-50); Albumin Level 4.2 g/dL (3.5-5.1); Alkaline Phosphatase 82 U/L (38-126); Anion Gap 10 mmol/L (4-12); Aspartate Amino Transferase 44 U/L (17-59); Bilirubin,Total 0.5 mg/dL (0.2-1.3); Blood Urea Nitrogen 10 mg/dL (9-20); Calcium 9.1 mg/dL (8.4-10.2); Carbon Dioxide 24 mmol/L (22-30); Chloride 103 mmol/L (98-107); Estimated CRCL calculation 127 ml/min; Estimated Glomerular Filt Rate > 60; Glucose 206 mg/dL (65-110); Lipase 234 U/L (23-300); Potassium 4.1 mmol/L (3.4-5.0); Sodium 137 mmol/L (137-145); Total Protein 7.3 g/dL (6.3-8.2)
[2025-07-21] MEDS: SODIUM CHLORIDE 0.9% IV 1,000 ML 999 ML IV CONT (11:44)
--- NOTE | 2025-07-21 12:15 | ED.GENADULT ---
HPI - General Adult General Chief complaint: Abdominal Pain Stated complaint: umbilical hernia Time Seen by Provider: 07/21/25 11:21 History of Present Illness HPI narrative: Patient is a 45-year-old gentleman presents emergency department chief complaint of abdominal pain. Patient reports that he had some swelling around his umbilicus reports that he had an umbilical hernia that is protruded and has not been able to be reduced in several days the patient states there is exquisitely painful worse when he stands Related Data Home Medications ?Medication ?Instructions ?Recorded ?Confirmed ?Last Taken ?Type multivitamin 1 tablet PO DAILY 06/11/23 07/21/25 07/21/25 History omega-3 fatty acids-vitamin E 1 cap PO DAILY 06/11/23 07/21/25 07/21/25 History 1,000 mg capsule niacin 1,000 mg tablet,extended 1,000 mg PO QPM 07/21/25 07/21/25 07/20/25 History release 24 hr sitagliptin phosphate 50 mg tablet 50 mg PO QPM 07/21/25 07/21/25 07/20/25 History (Januvia) Allergies Allergy/AdvReac Type Severity Reaction Status Date / Time No Known Allergies Allergy Verified 07/21/25 10:52 Review of Systems Review of Systems: A 10 system review of systems was completed on the patient and is negative except for what is stated in the HPI. Nursing and ancillary documentation was reviewed. [facility] Past Medical History Medical History HTN (hypertension) Nephrolithiasis GERD with esophagitis Irritable bowel Skin lesion Obesity Colon cancer screening Diabetes mellitus HLD (hyperlipidemia) Surgical History Surgical History History of lithotripsy Family History Family History Father Family history of diabetes mellitus in first degree relative Acute myocardial infarction Mother Family history of diabetes mellitus in first degree relative Family history of heart disease in male family member before age 55 Social History Social History Smoking status: Never smoker Alcohol intake: never Alcohol use details: rarely Substance use: never Substance use type: does not use Do You Feel Safe in your Home?: Yes Lack of Transportation: No Lack of Food: Never True Current Housing: I Have Housing Concerned About Future Housing: No Difficulty Paying Gas/Electric Bills: No Difficulty Paying for Meds: No Currently Unemployed: No Education: Associate Degree Difficulty w/ Childcare or Family Care: No Living arrangements: with family Spiritual care concerns: No Exam Narrative: GENERAL: Well-appearing, well-nourished, and in no acute distress. HEAD: Normocephalic, atraumatic. EYES: PERRLA and EOMI. ENT: Nares clear, no rhinorrhea or epistaxis. Mucous membranes moist. NECK: Supple. CHEST: Clear to auscultation. No respiratory distress. HEART: Regular rate and rhythm. No murmur heard. Normal peripheral pulses. ABDOMEN: Soft, tenderness to palpation, there is a bulging umbilical hernia that is non reducible, nondistended, normal active bowel sounds. EXTREMITIES: Normal range of motion. No edema. SKIN: Warm, dry, no rash. NEURO: No focal deficits. Alert and oriented x3. PSYCH: Normal mood and affect. Course Vital Signs Vital signs: Vital Signs Temperature 36.5 C 07/21/25 10:53 Pulse Rate 88 07/21/25 10:53 Respiratory Rate 18 07/21/25 10:53 Blood Pressure 146/102 H 07/21/25 10:53 Pulse Oximetry 99 07/21/25 10:53 Oxygen Delivery Room Air 07/21/25 10:53 Temperature 36.5 C 07/21/25 10:53 Pulse Rate 78 07/21/25 16:02 Respiratory Rate 17 07/21/25 16:02 Blood Pressure 146/78 H 07/21/25 16:02 Pulse Oximetry 100 07/21/25 16:02 Oxygen Delivery Room Air 07/21/25 16:07 Medical Decision Making [facility] Narrative Medical decision making narrative: Differential diagnosis includes incarcerated hernia, abdominal pain, intra-abdominal infection CT scan was obtained of the abdomen pelvis that showed a fat containing umbilical hernia that showed inflammation of the fat. There was overlying erythema hernia on exam case was discussed with Dr. Parkinson of surgery who recommended antibiotics admission to the hospitalist service with surgical consult Vital Signs Vital Signs: Vital Signs Temperature 36.5 C 07/21/25 10:53 Pulse Rate 88 07/21/25 10:53 Respiratory Rate 18 07/21/25 10:53 Blood Pressure 146/102 H 07/21/25 10:53 Pulse Oximetry 99 07/21/25 10:53 Oxygen Delivery Room Air 07/21/25 10:53 Temperature 36.5 C 07/21/25 10:53 Pulse Rate 78 07/21/25 16:02 Respiratory Rate 17 07/21/25 16:02 Blood Pressure 146/78 H 07/21/25 16:02 Pulse Oximetry 100 07/21/25 16:02 Oxygen Delivery Room Air 07/21/25 16:07 Lab Data 07/21/25 11:13 07/21/25 11:13 Labs: Lab Results 07/21/25 07/21/25 07/21/25 Range/Units 11:13 11:40 14:01 WBC 7.8 (4.5-10.0) K/mm3 RBC 4.95 (4.6-6.20) M/mm3 Hgb 13.8 L (14.0-18.0) g/dL Hct 40.0 L (42.0-52.0) % MCV 80.8 (80-100) fl MCH 27.9 (26-34) pg MCHC 34.5 (32-36) g/dl RDW 12.5 (11.5-14.5) % Plt Count 217 (150-375) k/mm3 MPV 9.7 (7.4-10.4) fl Immature Gran % (Auto) 0.6 H (0-0.5) % Neut % (Auto) 59.8 (45.5-73.1) % Lymph % (Auto) 28.9 (18.3-44.2) % [place] % (Auto) 8.5 (2.6-8.5) % Eos % (Auto) 1.7 (0-4.4) % Baso % (Auto) 0.5 (0.2-1.2) % Lymph # (Auto) 2.24 (0.9-3.2) K/mm3 [place] # (Auto) 0.7 H (0.1-0.6) K/mm3 Eos # (Auto) 0.1 (0-0.3) K/mm3 Baso # (Auto) 0.0 (0.0-0.1) K/mm3 Abs Immat Gran (auto) 0.05 H (0.00-0.031) K/mm3 Absolute Neuts (auto) 4.6 (1.3-6.7) K/mm3 Absolute Nucleated RBC 0.000 (0.0-0.012) K/mm3 Nucleated RBC % 0.0 (0.0-0.2) % Sodium 137 (137-145) mmol/L Potassium 4.1 (3.4-5.0) mmol/L Chloride 103 (98-107) mmol/L Carbon Dioxide 24 (22-30) mmol/L Anion Gap 10 (4-12) mmol/L BUN 10 (9-20) mg/dL Creatinine 0.68 L (0.7-1.3) mg/dL Estim Creat Clear Calc 127 ml/min Estimated GFR > 60 (59 - ) Glucose 206 H (65-110) mg/dL Lactic Acid 2.3 H 1.9 (0.7-2.0) mmol/L Calcium 9.1 (8.4-10.2) mg/dL Total Bilirubin 0.5 (0.2-1.3) mg/dL AST 44 (17-59) U/L ALT 42 (6-50) U/L Alkaline Phosphatase 82 (38-126) U/L Total Protein 7.3 (6.3-8.2) g/dL Albumin 4.2 (3.5-5.1) g/dL Lipase 234 (23-300) U/L Urine Color Dark yellow (Yellow) Urine Appearance Turbid H (Clear) Urine pH 7.5 (5.0-9.0) Ur Specific Busy 1.029 (1.001-1.035) Urine Protein Trace (Negative) mg/dL Urine Glucose (UA) 2+ H (Negative) mg/dL Urine Ketones Trace H (Negative) mg/dL Ur Blood (Man) Negative (Negative) Urine Nitrate Negative (Negative) Urine Bilirubin 1+ H (Negative) Urine Urobilinogen 1.0 (<2.0) mg/dL Leukocyte Esterase Rfl Negative (Negative) LISA/UL Urine RBC 0-2 (0-2) /hpf Urine WBC 0-5 (0-3) /hpf Ur Squamous Epith Cells None seen (Few) /hpf Urine Bacteria None seen /hpf Urine Casts 0-2 Discharge Plan Discharge Clinical Impression: Abdominal pain Hernia, umbilical Qualifiers: Obstruction and gangrene presence: without obstruction or gangrene Qualified Code(s): K42.9 - Umbilical hernia without obstruction or gangrene Patient Disposition: Still a Patient Condition: Stable
[2025-07-21 14:30] VITALS: BP 125/95; PULSE 93; RESP 17; O2SAT 100
[2025-07-21] MEDS: PIPERACILLIN/TAZOBACTAM SOD 3.375 GM in SODIUM CHLORIDE 0.9% IV 50 ML 100 ML IVPB ×2 (14:43→23:39)
--- NOTE | 2025-07-21 15:01 | PM.IMHP ---
H&P: HPI History of Present Illness Date/Time: 07/21/25 15:01 Chief Complaint: Umbilical Redness Narrative: 45 y/o M with PMH of DM2, HLD, GERD, and umbilical hernia presents here with umbilical pain and redness. The patient presents here from home on 07/21 for further evaluation of redness and pain to his umbilical region. Also felt hot to the touch. He reports onset on Wednesday evening, 07/17. He reports a past medical history significant for an umbilical hernia for the past 6 months, however it has previously been soft in able to be pushed back in. He reports for the past few days (since Wednesday) he has been on able to push the protrusion back in. He denies any associated nausea, vomiting, fever, chills, or body aches. He does endorse diarrhea that started around Wednesday/ with no associated melena or hematochezia. Now also having difficulty changing positions, using the stairs, or standing due to the pain. Initial VS at presentation: 97.7? F, HR 88, R 18, 146/102, and 99% on RA. ED workup showed: No leukocytosis, hemoglobin 13.8, creatinine 0.68 and GFR >60, glucose 206, lactic 2.3 (repeat 1.9), and UA was turbid with 2+ glucose/trace ketones/1+ bilirubin. CT of the abdomen/pelvis showed an umbilical hernia with strangulation of hernia that causes inflammation intra and extraperitoneal, otherwise no acute findings. Review of Systems Review of Systems: All systems reviewed & are unremarkable except as noted in HPI and below [facility] Past Medical History Medical History HTN (hypertension) Nephrolithiasis GERD with esophagitis Irritable bowel Skin lesion Obesity Colon cancer screening Diabetes mellitus HLD (hyperlipidemia) Surgical History Surgical History History of lithotripsy Family History Family History Father Family history of diabetes mellitus in first degree relative Acute myocardial infarction Mother Family history of diabetes mellitus in first degree relative Family history of heart disease in male family member before age 55 Social History Social History Smoking status: Never smoker Alcohol intake: never Alcohol use details: rarely Substance use: never Substance use type: does not use Do You Feel Safe in your Home?: Yes Lack of Transportation: No Lack of Food: Never True Current Housing: I Have Housing Concerned About Future Housing: No Difficulty Paying Gas/Electric Bills: No Difficulty Paying for Meds: No Currently Unemployed: No Education: Associate Degree Difficulty w/ Childcare or Family Care: No Living arrangements: with family Spiritual care concerns: No Meds Home Medications and Allergies Home Medications ?Medication ?Instructions ?Recorded ?Confirmed ?Type blood sugar diagnostic (WintegraTouch #100 ea 08/08/21 07/21/25 Rx Verio test strips) multivitamin 1 tablet PO DAILY 06/11/23 07/21/25 History omega-3 fatty acids-vitamin E 1 cap PO DAILY 06/11/23 07/21/25 History 1,000 mg capsule fenofibrate nanocrystallized 145 145 mg PO DAILY #90 tabs 10/20/24 07/21/25 Rx mg tablet simvastatin 40 mg tablet 40 mg PO DAILY #90 tabs 01/18/25 07/21/25 Rx pantoprazole 40 mg tablet,delayed 40 mg PO DAILY #90 tabs 06/11/25 07/21/25 Rx release semaglutide 2 mg/dose (8 mg/3 mL) See Rx Instructions .Route 06/11/25 07/21/25 Rx subcutaneous pen injector (Ozempic) .COMPLEX #3 mL temazepam 15 mg capsule 15 mg PO QHS PRN sleep #30 caps 06/11/25 07/21/25 Rx metformin 1,000 mg tablet See Rx Instructions .Route 07/04/25 07/21/25 Rx .COMPLEX #180 tabs niacin 1,000 mg tablet,extended 1,000 mg PO QPM 07/21/25 07/21/25 History release 24 hr sitagliptin phosphate 50 mg tablet 50 mg PO QPM 07/21/25 07/21/25 History (Januvia) Allergies Allergy/AdvReac Type Severity Reaction Status Date / Time No Known Allergies Allergy Verified 07/21/25 10:52 Vital Signs Vital Signs - 24 hr 07/21/25 10:53 07/21/25 14:30 Temperature 97.7 F Pulse Rate 88 93 Respiratory Rate 18 17 Blood Pressure 146/102 H 125/95 H Pulse Oximetry 99 100 Oxygen Delivery Room Air Exam Const: General: comfortable and no acute distress Other: , male, nontoxic appearance HENMT: Face/Nose/Sinus: Normal nares present Mouth: Yes moist mucous membranes Eyes: General: appearance normal, both eyes and all related structures Sclera: sclerae normal Pupils: Equal, round and reactive pupils present EOM: EOMs intact bilaterally Resp: Effort & Inspection: normal respiratory effort Auscultation: clear to auscultation bilaterally Cardio: Rate: regular rate Rhythm: regular rhythm Other: S1-S2 present without murmur, rub, ectopy GI: Other: Small 1-2 cm protrusion at the umbilicus that is firm and exquisitely tender with palpation. Erythema resolved. Nonreducible. Normal to hypoactive bowel sounds in all quadrants. No other tenderness appreciated. Abdomen soft in all other quadrants. Skin: General skin exam: normal color and no rashes or lesions noted Wounds: no wounds Neuro: Speech: normal speech Motor exam (neuro): 5/5 motor strength present throughout Sensory Exam: normal sensation Other: A&O x4 Extrem: General: normal to inspection Psych: Mental Status: mental status grossly normal Affect: normal affect Other: Good insight and judgment, very pleasant H&P: Results Labs Labs: Short CBC 07/21/25 Range/Units 11:13 WBC 7.8 (4.5-10.0) K/mm3 Hgb 13.8 L (14.0-18.0) g/dL Hct 40.0 L (42.0-52.0) % Plt Count 217 (150-375) k/mm3 BMP 07/21/25 11:13 Sodium 137 Potassium 4.1 Chloride 103 Carbon Dioxide 24 BUN 10 Creatinine 0.68 L Glucose 206 H Calcium 9.1 Liver Function 07/21/25 Range/Units 11:13 Total Bilirubin 0.5 (0.2-1.3) mg/dL AST 44 (17-59) U/L ALT 42 (6-50) U/L Alkaline Phosphatase 82 (38-126) U/L Albumin 4.2 (3.5-5.1) g/dL Urine 07/21/25 Range/Units 11:13 Urine Color Dark yellow (Yellow) Urine Appearance Turbid H (Clear) Urine pH 7.5 (5.0-9.0) Ur Specific [place] 1.029 (1.001-1.035) Urine Protein Trace (Negative) mg/dL Urine Glucose (UA) 2+ H (Negative) mg/dL Assessment and Plan Assessment and plan (1) Hernia, umbilical: Qualifiers: Obstruction and gangrene presence: without obstruction or gangrene Qualified Code(s): K42.9 - Umbilical hernia without obstruction or gangrene Code(s): K42.9 - Umbilical hernia without obstruction or gangrene Status: Acute Assessment and Plan: Patient presents to the ER n 07/21 for further evaluation of umbilical pain and erythema. Has history of an umbilical hernia. Previously reducible, now no longer able to self reduce. CT of the abd/pelvis done on 07/21 home from showed an umbilical hernia with strangulation of herniated back causing significant inflammation intra and extraperitoneal. General surgery has been consulted. ED spoke with on-call surgeon, Serafin CHIU, who recommended antibiotics and to make patient NPO at midnight for surgical management, likely tomorrow. - started on Zosyn on 07/21 - diabetic diet, NPO midnight - IV fluids: 1L bolus -> NS 125 mL/hr - trend WBC - lactic initially elevated upon admission at some from 2.3, repeat 1.9 with IV fluids. Did not meet SIRS criteria. - general surgery consulted (2) Diabetes mellitus: Qualifiers: Diabetes mellitus complication status: without complication Diabetes mellitus half-way insulin use: without half-way use Diabetes mellitus type: type 2 Qualified Code(s): E11.9 - Type 2 diabetes mellitus without complications Code(s): E11.9 - Type 2 diabetes mellitus without complications Status: Chronic Assessment and Plan: - hypoglycemia protocol - POC blood glucose ACHS - home medication: Hold metformin, semaglutide, and sitagliptin as he will likely be a surgical candidate tomorrow (07/22) - correct regimen ordered - moderate dose TIDWM and HS, based off BMI - A1C 7.6% on 06/09/2025 (3) HLD (hyperlipidemia): Qualifiers: Hyperlipidemia type: unspecified Qualified Code(s): E78.5 - Hyperlipidemia, unspecified Code(s): E78.5 - Hyperlipidemia, unspecified Status: Chronic Assessment and Plan: - hold home medication, surgical candidate, likely on 07/22 (4) HTN (hypertension): Qualifiers: Hypertension type: primary hypertension Qualified Code(s): I10 - Essential (primary) hypertension Code(s): I10 - Essential (primary) hypertension Status: Acute Assessment and Plan: - chronic, currently 125/95 and stable - hold home medication, surgical candidate, likely on 07/22 - hydralazine prn for BP >180/90 - monitor Plan Diet: Diabetic, NPO at midnight GI Prophylaxis: PPI IV DVT Prophylaxis: SCDs IV fluids: 1L bolus -> 125 mL/hr Lines/Tubes: peripheral IV Code Status: full code Quality VTE Prophylaxis VTE prophylaxis: mechanical ordered Hospitalist MIPS Advance Care Plan I have confirmed that the patient's Advanced Care Plan is present, code status is documented, or surrogate decision maker is listed in patient medical record.: Yes Medication Reconciliation I have utilized all available resources to obtain, update and review the patients current medications (includes all prescriptions, OTC, herbals, cannabis, and nutritional supplements).: Yes
[2025-07-21] MEDS: SODIUM CHLORIDE 0.9% IV 1,000 ML 125 ML IV CONT ×2 (15:25→22:35)
[2025-07-21] MEDS: ACETAMINOPHEN 325 MG TABLET 650 MG PO ×2 (15:30→21:10)
[2025-07-21 16:02] VITALS: BP 146/78; PULSE 78; RESP 17; O2SAT 100
--- NOTE | 2025-07-21 16:07 | ADMGEN ---
This patient, Vern Andrews, was admitted to 3 Med Surg Room 327-01. Patient/family oriented to hospital policies and general routines including ID bracelet, bed and alarms, visiting hours, pain management, procedures, bathroom and other care routines, personal items, smoking policy, room service/diet, and visiting hours. Information on how to activate the Rapid Response Team has been discussed. Patient/Family are encouraged to report perceived risks to care and to ask questions if they do not understand what they are told or what they should do.
[2025-07-21 16:20] VITALS: BMI 30.4
[2025-07-21 21:58] VITALS: BP 132/94; PULSE 98; RESP 18; TEMP 36.7; O2SAT 98
[2025-07-22] VITALS (12 sets, daily range): BP systolic 100–148; BP diastolic 64–97; PULSE 84–100; RESP 16–23; TEMP 36.2–37; O2SAT 91–98
[2025-07-22] MEDS: PIPERACILLIN/TAZOBACTAM SOD 3.375 GM in SODIUM CHLORIDE 0.9% IV 50 ML 100 ML IVPB ×3 (05:34→17:12)
[2025-07-22 06:56] LABS: Hematocrit 40.7 % (42.0-52.0); Hemoglobin 13.5 g/dL (14.0-18.0); Immature Granulocyte Percent A 0.8 % (0-0.5); Lymphocytes Absolute Auto 2.11 K/mm3 (0.9-3.2); Mean Corpuscular HGB Conc 33.2 g/dl (32-36); Mean Corpuscular Hemoglobin 27.2 pg (26-34); Mean Corpuscular Volume 81.9 fl (80-100); Nucleated Red Blood Cells Absolute Auto 0.000 K/mm3 (0.0-0.012); Nucleated Red Blood Cells Perc 0.0 % (0.0-0.2); Platelet Count Result 231 k/mm3 (150-375); Red Blood Count 4.97 M/mm3 (4.6-6.20); White Blood Count 6.5 K/mm3 (4.5-10.0)
[2025-07-22 07:07] LABS: INR 1.2; Prothrombin Time 14.9 Seconds (11.1-14.7)
[2025-07-22 07:08] LABS: Partial Thromboplastin Time 31.0 Seconds (22.3-36.8)
[2025-07-22 07:20] LABS: Alanine Aminotransferase 35 U/L (6-50); Albumin Level 4.0 g/dL (3.5-5.1); Alkaline Phosphatase 81 U/L (38-126); Anion Gap 12 mmol/L (4-12); Aspartate Amino Transferase 37 U/L (17-59); Bilirubin,Total 0.6 mg/dL (0.2-1.3); Blood Urea Nitrogen 8 mg/dL (9-20); Calcium 9.4 mg/dL (8.4-10.2); Carbon Dioxide 20 mmol/L (22-30); Chloride 107 mmol/L (98-107); Estimated CRCL calculation 118 ml/min; Estimated Glomerular Filt Rate > 60; Glucose 178 mg/dL (65-110); Magnesium 1.9 mg/dL (1.6-2.3); Potassium 3.9 mmol/L (3.4-5.0); Sodium 139 mmol/L (137-145); Total Protein 7.3 g/dL (6.3-8.2)
--- NOTE | 2025-07-22 07:54 | P.PNIM_ITS ---
Progress Note: A&P Assessment and Plan (1) Hernia, umbilical: Qualifiers: Obstruction and gangrene presence: without obstruction or gangrene Qualified Code(s): K42.9 - Umbilical hernia without obstruction or gangrene Code(s): K42.9 - Umbilical hernia without obstruction or gangrene Status: Acute Assessment and Plan: Patient presents to the ER n 07/21 for further evaluation of umbilical pain and erythema. Has history of an umbilical hernia. Previously reducible, now no longer able to self reduce. - CT of the abd/pelvis done on 07/21 home from showed an umbilical hernia with strangulation of herniated back causing significant inflammation intra and extraperitoneal. - started on Zosyn on 07/21 - s/p open incarcerated hernia repair by Dr. Betancourt 07/22 - pain control, DVT prophylaxis (2) Diabetes mellitus: Qualifiers: Diabetes mellitus complication status: without complication Diabetes mellitus group home insulin use: without group home use Diabetes mellitus type: type 2 Qualified Code(s): E11.9 - Type 2 diabetes mellitus without complications Code(s): E11.9 - Type 2 diabetes mellitus without complications Status: Chronic Assessment and Plan: - A1C 7.6% on 06/09/2025 - hypoglycemia protocol - POC blood glucose ACHS - home medication: Hold metformin, semaglutide, and sitagliptin - continue moderate dose sliding scale (3) HLD (hyperlipidemia): Qualifiers: Hyperlipidemia type: unspecified Qualified Code(s): E78.5 - Hyperlipidemia, unspecified Code(s): E78.5 - Hyperlipidemia, unspecified Status: Chronic Assessment and Plan: - resume statin (4) HTN (hypertension): Qualifiers: Hypertension type: primary hypertension Qualified Code(s): I10 - Essential (primary) hypertension Code(s): I10 - Essential (primary) hypertension Status: Acute Assessment and Plan: - chronic, currently 125/95 and stable - hold home medication, surgical candidate, likely on 07/22 - hydralazine prn for BP >180/90 - monitor Plan DVT prophylaxis: Lovenox Code Status: full code Dispo: likely tomorrow Subjective Date/time seen: 07/22/25 07:54 Interval history: Patient is examined at bedside postop. Pain is decently controlled. Denies nausea. Discussed plan of care with patient and patient's at bedside. Review of Systems Review of Systems: All systems reviewed & are unremarkable except as noted in HPI and below Exam Narrative: General: NAD Eyes: EOMI ENT: neck supple Cardiovascular: Regular rate and rhythm Respiratory: Clear to auscultation, respirations even and unlabored on RA Gastrointestinal: Soft, non tender Genitourinary: no suprapubic tenderness Musculoskeletal: No edema Skin: warm, dry Neuro: Alert. Psych: Mood appropriate Objective Data Vital Signs Vital Signs: Vital Signs - 24 hr 07/21/25 10:53 07/21/25 14:30 07/21/25 16:02 Temperature 97.7 F Pulse Rate 88 93 78 Respiratory Rate 18 17 17 Blood Pressure 146/102 H 125/95 H 146/78 H Pulse Oximetry 99 100 100 Oxygen Delivery Room Air 07/21/25 16:07 07/21/25 20:00 10/04/25 21:58 Temperature 98.0 F Pulse Rate 98 Respiratory Rate 18 Blood Pressure 132/94 H Pulse Oximetry 98 Oxygen Delivery Room Air Room Air 07/22/25 05:00 Temperature 97.3 F L Pulse Rate 84 Respiratory Rate 18 Blood Pressure 115/88 Pulse Oximetry 98 Oxygen Delivery Intake/Output Intake/Output: Intake & Output 07/19/25 07/20/25 07/21/25 07/22/25 23:59 23:59 23:59 23:59 Intake Total 2185.8 50 Balance 2185.8 50 Meds/Results Medications: Active Medications Generic Name Dose Route Start Last Admin Trade Name Freq PRN Reason Stop Dose Admin Acetaminophen 650 mg 07/21/25 15:14 07/21/25 21:10 Acetaminophen 325 Mg Tablet PO 650 mg Q4H PRN Administration Mild Pain (1-3) or Fever Hydrocodone Bitart/Acetaminophen 1 tab 07/21/25 15:14 Hydrocodone/Acetaminophen (*Crx) 5-325 Mg Tablet PO Q4H PRN Moderate Pain (4-6) Dextrose 12.5 gm 07/21/25 15:11 Dextrose 50% 25 Gm/50 Ml Syringe IV PUSH PRN PRN Hypoglycemia Protocol Glucagon 1 mg 07/21/25 15:11 Glucagon For Inj 1 Mg Vial IM PRN PRN Hypoglycemia Protocol Glucose 15 gm 07/21/25 15:11 Glucose Oral Gel 15 Gm Of Glucse In 37.5 Gm Tube PO PRN PRN Hypoglycemia Protocol Hydralazine HCl 10 mg 07/21/25 16:42 Hydralazine Hcl 20 Mg/Ml Vial IV PUSH Q8H PRN Blood Pressure - High, >180/90 Hydromorphone HCl 0.5 mg 07/21/25 14:49 Hydromorphone Hcl Inj (*Crx) 1 Mg/Ml Syr IV PUSH Q4H PRN Pain Rated 7-10 Piperacillin Sod/Tazobactam 50 mls @ 100 mls/hr 07/22/25 00:00 07/22/25 05:34 Sod 3.375 gm/ Sodium Chloride IVPB 100 mls/hr Q6HR MABLE Administration Sodium Chloride 1,000 mls @ 125 mls/hr 07/21/25 14:50 07/21/25 22:35 Normal Saline Iv IV CONT 125 mls/hr .Q8H MABLE Administration Dextrose 1,000 mls @ 100 mls/hr 07/21/25 15:11 Dextrose 5% 1,000 Ml IVPB PRN PRN Hypoglycemia Protocol Insulin Aspart 1 - 3 units 07/21/25 21:00 07/21/25 21:46 Insulin Aspart (*Bkc) 100 Units/Ml SUB-Q Not Given HS [facility] Protocol Insulin Aspart 3 - 6 units 07/21/25 17:00 07/21/25 21:46 Insulin Aspart (*Bkc) 100 Units/Ml SUB-Q Not Given TIDWM [facility] Protocol Ondansetron HCl 4 mg 07/21/25 14:49 Ondansetron Inj 4 Mg/2 Ml Vial IV PUSH Q4H PRN Nausea Pantoprazole Sodium 40 mg 07/22/25 09:00 Pantoprazole Sodium Iv 40 Mg Vial IV PUSH DAILY [facility] Radiology Results: ITS Impressions Abdomen/Pelvis CT 07/21/25 13:21 IMPRESSION: 1. Umbilical hernia with strangulation of herniated fat causing significant inflammation intra and extraperitoneal. 2. Nonacute findings as above. Labs Labs: Laboratory Results - last 24 hr 07/21/25 07/21/25 07/21/25 11:13 11:40 14:01 WBC 7.8 RBC 4.95 Hgb 13.8 L Hct 40.0 L MCV 80.8 MCH 27.9 MCHC 34.5 RDW 12.5 Plt Count 217 MPV 9.7 Immature Gran % (Auto) 0.6 H Neut % (Auto) 59.8 Lymph % (Auto) 28.9 [place] % (Auto) 8.5 Eos % (Auto) 1.7 Baso % (Auto) 0.5 Lymph # (Auto) 2.24 [place] # (Auto) 0.7 H Eos # (Auto) 0.1 Baso # (Auto) 0.0 Abs Immat Gran (auto) 0.05 H Absolute Neuts (auto) 4.6 Absolute Nucleated RBC 0.000 Nucleated RBC % 0.0 PT INR APTT Sodium 137 Potassium 4.1 Chloride 103 Carbon Dioxide 24 Anion Gap 10 BUN 10 Creatinine 0.68 L Estim Creat Clear Calc 127 Estimated GFR > 60 Glucose 206 H POC Capillary Glucose Lactic Acid 2.3 H 1.9 Calcium 9.1 Magnesium Total Bilirubin 0.5 AST 44 ALT 42 Alkaline Phosphatase 82 Total Protein 7.3 Albumin 4.2 Lipase 234 Urine Color Dark yellow Urine Appearance Turbid H Urine pH 7.5 Ur Specific [place] 1.029 Urine Protein Trace Urine Glucose (UA) 2+ H Urine Ketones Trace H Ur Blood (Man) Negative Urine Nitrate Negative Urine Bilirubin 1+ H Urine Urobilinogen 1.0 Leukocyte Esterase Rfl Negative Urine RBC 0-2 Urine WBC 0-5 Ur Squamous Epith Cells None seen Urine Bacteria None seen Urine Casts 0-2 07/21/25 07/22/25 21:09 06:26 WBC 6.5 RBC 4.97 Hgb 13.5 L Hct 40.7 L MCV 81.9 MCH 27.2 MCHC 33.2 RDW 12.5 Plt Count 231 MPV 9.5 Immature Gran % (Auto) 0.8 H Neut % (Auto) 55.6 Lymph % (Auto) 32.5 [place] % (Auto) 8.0 Eos % (Auto) 2.5 Baso % (Auto) 0.6 Lymph # (Auto) 2.11 [place] # (Auto) 0.5 Eos # (Auto) 0.2 Baso # (Auto) 0.0 Abs Immat Gran (auto) 0.05 H Absolute Neuts (auto) 3.6 Absolute Nucleated RBC 0.000 Nucleated RBC % 0.0 PT 14.9 H INR 1.2 APTT 31.0 Sodium 139 Potassium 3.9 Chloride 107 Carbon Dioxide 20 L Anion Gap 12 BUN 8 L Creatinine 0.74 Estim Creat Clear Calc 118 Estimated GFR > 60 Glucose 178 H POC Capillary Glucose 173 H Lactic Acid Calcium 9.4 Magnesium 1.9 Total Bilirubin 0.6 AST 37 ALT 35 Alkaline Phosphatase 81 Total Protein 7.3 Albumin 4.0 Lipase Urine Color Urine Appearance Urine pH Ur Specific [place] Urine Protein Urine Glucose (UA) Urine Ketones Ur Blood (Man) Urine Nitrate Urine Bilirubin Urine Urobilinogen Leukocyte Esterase Rfl Urine RBC Urine WBC Ur Squamous Epith Cells Urine Bacteria Urine Casts Quality VTE Prophylaxis VTE prophylaxis: mechanical ordered and pharmacologic ordered
--- NOTE | 2025-07-22 08:25 | WPDCN ---
Assessment and Plan Assessment and plan (1) Incarcerated umbilical hernia: Code(s): K42.0 - Umbilical hernia with obstruction, without gangrene Status: Acute Assessment and Plan: Patient has incarcerated umbilical hernia with likely inflamed ir ischemic omentum or preperitoneal fat incarcerated within the hernia sac. He will need open umbilical hernia repair with possible mesh placement depending on the degree of inflammation or necrosis of tissue within the hernia sac. If there is any necrosis of tissue or significant ischemic tissue then I would not place any mesh. In that case primary suture repair would be performed and the patient would have a higher risk of recurrence of the hernia in the future which could then likely be repaired with a piece of mesh with much less chance of mesh infection. Risks, benefits, indications, and expected outcomes were discussed in detail with the patient and/or family. They understand and I have answered all other questions. They wished to proceed with surgery as outlined above. HPI Data of Consult Date/Time: 07/22/25 08:25 Requesting Physician: Rosalinda Guerrier MD Primary Care Provider: Edgar Rizo MD Consult Narrative Reason for consult: Incarcerated umbilical hernia Narrative: Up until earlier this week and always been easily reducible. The past several days Vern Andrews is a 45 year old male who states he has had a hernia for least 6 months. Until last week and always been easily reducible. Over last couple days has not been reducible and obtained from the hernia became much more severe yesterday. He presented to the emergency room and had some mild erythema around the area the umbilicus. CT scan abdomen pelvis was done showing an umbilical hernia which had incarcerated preperitoneal or omental fat within it. No bowel was involved with the hernia. Patient has no symptoms of bowel obstruction. White blood count is normal. He was afebrile. His admitted to the hospital for expected management of the umbilical hernia with surgical repair. He has not had a prior ventral hernia repair in the past. Review of Systems Review of Systems: The remainder of the review of systems to include constitutional, HEENT, cardiovascular, respiratory, GI, , integumentary, musculoskeletal, endocrine, immunologic, hematologic, psychiatric, and neurologic are all negative except for which is mentioned above in the HPI. [facility] Past Medical History Medical History HTN (hypertension) Nephrolithiasis GERD with esophagitis Irritable bowel Skin lesion Obesity Colon cancer screening Diabetes mellitus HLD (hyperlipidemia) Surgical History Surgical History History of lithotripsy Family History Family History Father Family history of diabetes mellitus in first degree relative Acute myocardial infarction Mother Family history of diabetes mellitus in first degree relative Family history of heart disease in male family member before age 55 Social History Social History Smoking status: Never smoker Alcohol intake: never Alcohol use details: rarely Substance use: never Substance use type: does not use Do You Feel Safe in your Home?: Yes Lack of Transportation: No Lack of Food: Never True Current Housing: I Have Housing Concerned About Future Housing: No Difficulty Paying Gas/Electric Bills: No Difficulty Paying for Meds: No Currently Unemployed: No Education: Associate Degree Difficulty w/ Childcare or Family Care: No Living arrangements: with family Spiritual care concerns: No Meds Home Medications and Allergies Home Medications ?Medication ?Instructions ?Recorded ?Confirmed ?Type blood sugar diagnostic (OneTouch #100 ea 08/08/21 07/21/25 Rx Verio test strips) multivitamin 1 tablet PO DAILY 06/11/23 07/21/25 History omega-3 fatty acids-vitamin E 1 cap PO DAILY 06/11/23 07/21/25 History 1,000 mg capsule fenofibrate nanocrystallized 145 145 mg PO DAILY #90 tabs 10/20/24 07/21/25 Rx mg tablet simvastatin 40 mg tablet 40 mg PO DAILY #90 tabs 01/18/25 07/21/25 Rx pantoprazole 40 mg tablet,delayed 40 mg PO DAILY #90 tabs 06/11/25 07/21/25 Rx release semaglutide 2 mg/dose (8 mg/3 mL) See Rx Instructions .Route 06/11/25 07/21/25 Rx subcutaneous pen injector (Ozempic) .COMPLEX #3 mL temazepam 15 mg capsule 15 mg PO QHS PRN sleep #30 caps 06/11/25 07/21/25 Rx metformin 1,000 mg tablet See Rx Instructions .Route 07/04/25 07/21/25 Rx .COMPLEX #180 tabs niacin 1,000 mg tablet,extended 1,000 mg PO QPM 07/21/25 07/21/25 History release 24 hr sitagliptin phosphate 50 mg tablet 50 mg PO QPM 07/21/25 07/21/25 History (Januvia) Allergies Allergy/AdvReac Type Severity Reaction Status Date / Time No Known Allergies Allergy Verified 07/21/25 10:52 Vital Signs Vital Signs - 24 hr 07/21/25 10:53 07/21/25 14:30 07/21/25 16:02 Temperature 36.5 C Pulse Rate 88 93 78 Respiratory Rate 18 17 17 Blood Pressure 146/102 H 125/95 H 146/78 H Pulse Oximetry 99 100 100 Oxygen Delivery Room Air 07/21/25 16:07 07/21/25 20:00 07/21/25 21:58 Temperature 36.7 C Pulse Rate 98 Respiratory Rate 18 Blood Pressure 132/94 H Pulse Oximetry 98 Oxygen Delivery Room Air Room Air 07/22/25 05:00 Temperature 36.3 C L Pulse Rate 84 Respiratory Rate 18 Blood Pressure 115/88 Pulse Oximetry 98 Oxygen Delivery Exam Const: General: comfortable and no acute distress HENMT: Ears: TM's normal bilaterally Face/Nose/Sinus: Normal nares present Mouth: Yes moist mucous membranes Eyes: General: appearance normal, both eyes and all related structures Sclera: sclerae normal Pupils: Equal, round and reactive pupils present EOM: EOMs intact bilaterally Neck: Neck: supple and no JVD Resp: Effort & Inspection: normal respiratory effort Auscultation: clear to auscultation bilaterally Cardio: Rate: regular rate Rhythm: regular rhythm GI: Other: Abdomen mildly obese. Nondistended. Mild tenderness palpation around the area the umbilicus. There is a incarcerated umbilical hernia with some minimal erythema of the skin. No necrosis of the skin. No other masses and no other ventral hernias. No peritoneal signs. : Male General Exam: Yes normal external exam Skin: General skin exam: normal color and no rashes or lesions noted Neuro: General: gait normal Speech: normal speech Extrem: General: normal to inspection Psych: Mental Status: mental status grossly normal Affect: normal affect Results Labs 07/22/25 06:26 07/22/25 06:26 Labs: Short CBC 07/21/25 07/22/25 Range/Units 11:13 06:26 WBC 7.8 6.5 (4.5-10.0) K/mm3 Hgb 13.8 L 13.5 L (14.0-18.0) g/dL Hct 40.0 L 40.7 L (42.0-52.0) % Plt Count 217 231 (150-375) k/mm3 BMP 07/21/25 07/22/25 11:13 06:26 Sodium 137 139 Potassium 4.1 3.9 Chloride 103 107 Carbon Dioxide 24 20 L BUN 10 8 L Creatinine 0.68 L 0.74 Glucose 206 H 178 H Calcium 9.1 9.4 Liver Function 07/21/25 07/22/25 Range/Units 11:13 06:26 Total Bilirubin 0.5 0.6 (0.2-1.3) mg/dL AST 44 37 (17-59) U/L ALT 42 35 (6-50) U/L Alkaline Phosphatase 82 81 (38-126) U/L Albumin 4.2 4.0 (3.5-5.1) g/dL Urine 07/21/25 Range/Units 11:13 Urine Color Dark yellow (Yellow) Urine Appearance Turbid H (Clear) Urine pH 7.5 (5.0-9.0) Ur Specific [place] 1.029 (1.001-1.035) Urine Protein Trace (Negative) mg/dL Urine Glucose (UA) 2+ H (Negative) mg/dL Imaging Radiologist's impression: CT Scan Report Signed Patient: Vern Andrews : 1980 MR#: [id number] Age: 45 Acct:[id number] Loc: [facility] ADM Date: 07/21/[address]: Ordering Physician: Nolberto Ramírez MD Date of Service: 07/21/25 Procedure(s): CT abdomen pelvis w con Accession Number(s): [id number] cc: Nolberto Ramírez MD~ CT abdomen pelvis w con Clinical History: abdominal pain umbilical hernia . Comparison: CT abdomen and pelvis 01/07/2023 Technique: Axial images lung bases to symphysis pubis IV contrast information not listed in PACS Coronal, sagittal reformats CT images acquired with automatic exposure control for dose reduction DLP: 967 mGy-cm Findings: Lung bases: Clear. Visualized heart and pericardium: Unremarkable. Liver: Enlarged. Steatosis. Gallbladder: Unremarkable. Spleen: Unremarkable. Pancreas: Unremarkable. Adrenal glands: Unremarkable. Kidneys: Right kidney- No hydronephrosis. Tiny stone. Left kidney- No hydronephrosis. 3 mm stone. Distal esophagus/stomach: Unremarkable. Small bowel loops: Normal caliber and wall thickness. Colon: Diverticula. Normal caliber and wall thickness. Normal RLQ appendix. Nodes: No enlarged nodes. Peritoneum: No ascites. No free air. Urinary bladder: Unremarkable. Prostate: Unremarkable. Bones: No acute bony abnormality. Soft tissues: Umbilical hernia with fat, and extensive regional fat stranding. Aorta: No aneurysm or dissection. IVC: Unremarkable. Main portal vein/SMV/splenic vein: Patent. IMPRESSION: 1. Umbilical hernia with strangulation of herniated fat causing significant inflammation intra and extraperitoneal. 2. Nonacute findings as above. Reviewed, dictated and finalized at location R. Please be advised this is a medical document. It is intended for [id number] communication. It is written in medical language and may contain unfamiliar abbreviations or verbiage. Medical documents are intended to carry relevant information, facts as evident, and the clinical opinion of the practitioner at the time of the encounter. This report may have been done utilizing a voice recognition system. Attempts have been made to correct errors. However, there may be uncorrected grammatical, spelling, and recognition errors present. The file time of this note does not necessarily represent the time of service. Dictated By: Josh Zaragoza MD 07/21/25 1321 Signed By: <Electronically signed by Josh Zaragoza MD in OV> 07/21/25 1324
--- NOTE | 2025-07-22 09:17 | PC.NURSE ---
To OR per hospital bed.
--- NOTE | 2025-07-22 09:31 | WPDHPUPDATE1 ---
History and Physical Update Update Date/Time: 07/22/25 09:31 History and Physical has been reviewed, including an updated exam of the patient. There are NO changes in the patient's condition. Risks, benefits, and alternatives have been discussed and questions answered. Patient agrees to proceed with procedure.
--- NOTE | 2025-07-22 09:49 | P.PNAN_ITS ---
Anes - Initial Pre Proc Eval Procedure: Operation Date: 07/22/25 08:00 Proposed Procedures p Bipolar Hip Replacement - Guillermo Ribeiro MD Date/Time: 07/22/25 09:49 Surgeon: Rosalinda Guerrier MD Pre Op Diagnosis: Umbilical hernia, Abdominal pain Patient Data Age: 45 Gender: M Height: 1.73 m Weight: 90.8 kg Last Vital Signs Temp 97.3 F L 07/22/25 05:00 Pulse 84 07/22/25 05:00 Resp 18 07/22/25 05:00 BP 115/88 07/22/25 05:00 Pulse Ox 98 07/22/25 05:00 O2 Del Method Room Air 07/22/25 08:00 Allergies Allergy/AdvReac Type Severity Reaction Status Date / Time No Known Allergies Allergy Verified 07/21/25 10:52 Home Medications ?Medication ?Instructions ?Recorded ?Confirmed ?Type blood sugar diagnostic (OneTouch #100 ea 08/08/2102/09 Rx Verio test strips) multivitamin 1 tablet PO DAILY 06/11/23 1 History omega-3 fatty acids-vitamin E 1 cap PO DAILY 06/11/23 07/21/25 History 1,000 mg capsule fenofibrate nanocrystallized 145 145 mg PO DAILY #90 t abs 10/20/24 07/21/25 Rx mg tablet simvastatin 40 mg tablet 40 mg PO DAILY #90 tabs 01/0907/21/25 Rx pantoprazole 40 mg tablet,delayed 40 mg PO DAILY #90 t abs 06/11/25 07/21/25 Rx release semaglutide 2 mg/dose (8 mg/3 mL) See Rx Instructions .Route 06/11/25 07/21/25 Rx subcutaneous pen injector (Ozempic) .COMPLEX #3 mL temazepam 15 mg capsule 15 mg PO QHS PRN sleep #30 c aps 06/11/25 07/21/25 Rx metformin 1,000 mg tablet See Rx Instructions .Route 0 07/04/25 07/21/25 Rx .COMPLEX #180 tabs niacin 1,000 mg tablet,extended 1,000 mg PO QPM 07/21/25 History release 24 hr sitagliptin phosphate 50 mg tablet 50 mg PO QPM 07/21/25 History (Januvia) Laboratory Tests 07/21/25 07/21/25 07/21/25 11:13 11:40 14:01 WBC 7.8 K/mm3 (4.5-10.0) RBC 4.95 M/mm3 (4.6-6.20) Hgb 13.8 L g/dL (14.0-18.0) Hct 40.0 L % (42.0-52.0) MCV 80.8 fl (80-100) MCH 27.9 pg (26-34) MCHC 34.5 g/dl (32-36) RDW 12.5 % (11.5-14.5) Plt Count 217 k/mm3 (150-375) MPV 9.7 fl (7.4-10.4) Immature Gran % (Auto) 0.6 H % (0-0.5) Neut % (Auto) 59.8 % (45.5-73.1) Lymph % (Auto) 28.9 % (18.3-44.2) [place] % (Auto) 8.5 % (2.6-8.5) Eos % (Auto) 1.7 % (0-4.4) Baso % (Auto) 0.5 % (0.2-1.2) Lymph # (Auto) 2.24 K/mm3 (0.9-3.2) [place] # (Auto) 0.7 H K/mm3 (0.1-0.6) Eos # (Auto) 0.1 K/mm3 (0-0.3) Baso # (Auto) 0.0 K/mm3 (0.0-0.1) Abs Immat Gran (auto) 0.05 H K/mm3 (0.00-0.031) Absolute Neuts (auto) 4.6 K/mm3 (1.3-6.7) Absolute Nucleated RBC 0.000 K/mm3 (0.0-0.012) Nucleated RBC % 0.0 % (0.0-0.2) PT INR APTT Sodium 137 mmol/L (137-145) Potassium 4.1 mmol/L (3.4-5.0) Chloride 103 mmol/L (98-107) Carbon Dioxide 24 mmol/L (22-30) Anion Gap 10 mmol/L (4-12) BUN 10 mg/dL (9-20) Creatinine 0.68 L mg/dL (0.7-1.3) Estim Creat Clear Calc 127 ml/min Estimated GFR > 60 (59 - ) Glucose 206 H mg/dL (65-110) POC Capillary Glucose Lactic Acid 2.3 H mmol/L 1.9 mmol/L (0.7-2.0) (0.7-2.0) Calcium 9.1 mg/dL (8.4-10.2) Magnesium Total Bilirubin 0.5 mg/dL (0.2-1.3) AST 44 U/L (17-59) ALT 42 U/L (6-50) Alkaline Phosphatase 82 U/L (38-126) Total Protein 7.3 g/dL (6.3-8.2) Albumin 4.2 g/dL (3.5-5.1) Lipase 234 U/L (23-300) Urine Color Dark yellow (Yellow) Urine Appearance Turbid H (Clear) Urine pH 7.5 (5.0-9.0) Ur Specific [place] 1.029 (1.001-1.035) Urine Protein Trace mg/dL (Negative) Urine Glucose (UA) 2+ H mg/dL (Negative) Urine Ketones Trace H mg/dL (Negative) Ur Blood (Man) Negative (Negative) Urine Nitrate Negative (Negative) Urine Bilirubin 1+ H (Negative) Urine Urobilinogen 1.0 mg/dL (<2.0) Leukocyte Esterase Rfl Negative LISA/UL (Negative) Urine RBC 0-2 /hpf (0-2) Urine WBC 0-5 /hpf (0-3) Ur Squamous Epith Cells None seen /hpf (Few) Urine Bacteria None seen /hpf Urine Casts 0-2 07/21/25 07/22/25 07/22/25 21:09 06:26 08:12 WBC 6.5 K/mm3 (4.5-10.0) RBC 4.97 M/mm3 (4.6-6.20) Hgb 13.5 L g/dL (14.0-18.0) Hct 40.7 L % (42.0-52.0) MCV 81.9 fl (80-100) MCH 27.2 pg (26-34) MCHC 33.2 g/dl (32-36) RDW 12.5 % (11.5-14.5) Plt Count 231 k/mm3 (150-375) MPV 9.5 fl (7.4-10.4) Immature Gran % (Auto) 0.8 H % (0-0.5) Neut % (Auto) 55.6 % (45.5-73.1) Lymph % (Auto) 32.5 % (18.3-44.2) [place] % (Auto) 8.0 % (2.6-8.5) Eos % (Auto) 2.5 % (0-4.4) Baso % (Auto) 0.6 % (0.2-1.2) Lymph # (Auto) 2.11 K/mm3 (0.9-3.2) [place] # (Auto) 0.5 K/mm3 (0.1-0.6) Eos # (Auto) 0.2 K/mm3 (0-0.3) Baso # (Auto) 0.0 K/mm3 (0.0-0.1) Abs Immat Gran (auto) 0.05 H K/mm3 (0.00-0.031) Absolute Neuts (auto) 3.6 K/mm3 (1.3-6.7) Absolute Nucleated RBC 0.000 K/mm3 (0.0-0.012) Nucleated RBC % 0.0 % (0.0-0.2) PT 14.9 H Seconds (11.1-14.7) INR 1.2 APTT 31.0 Seconds (22.3-36.8) Sodium 139 mmol/L (137-145) Potassium 3.9 mmol/L (3.4-5.0) Chloride 107 mmol/L (98-107) Carbon Dioxide 20 L mmol/L (22-30) Anion Gap 12 mmol/L (4-12) BUN 8 L mg/dL (9-20) Creatinine 0.74 mg/dL (0.7-1.3) Estim Creat Clear Calc 118 ml/min Estimated GFR > 60 (59 - ) Glucose 178 H mg/dL (65-110) POC Capillary Glucose 173 H mg/dl 180 H mg/dl (65-105) (65-105) Lactic Acid Calcium 9.4 mg/dL (8.4-10.2) Magnesium 1.9 mg/dL (1.6-2.3) Total Bilirubin 0.6 mg/dL (0.2-1.3) AST 37 U/L (17-59) ALT 35 U/L (6-50) Alkaline Phosphatase 81 U/L (38-126) Total Protein 7.3 g/dL (6.3-8.2) Albumin 4.0 g/dL (3.5-5.1) Lipase Urine Color Urine Appearance Urine pH Ur Specific [place] Urine Protein Urine Glucose (UA) Urine Ketones Ur Blood (Man) Urine Nitrate Urine Bilirubin Urine Urobilinogen Leukocyte Esterase Rfl Urine RBC Urine WBC Ur Squamous Epith Cells Urine Bacteria Urine Casts Patient hx anesthesia problems: none Family hx anesthesia problems: none Results Review: All pre-operative results and documents have been reviewed as part of the pre- operative evaluation. [facility] Past Medical History Medical History HTN (hypertension) Nephrolithiasis GERD with esophagitis Irritable bowel Skin lesion Obesity Colon cancer screening Diabetes mellitus HLD (hyperlipidemia) Surgical History Surgical History History of lithotripsy Family History Family History Father Family history of diabetes mellitus in first degree relative Acute myocardial infarction Mother Family history of diabetes mellitus in first degree relative Family history of heart disease in male family member before age 55 Social History Social History Smoking status: Never smoker Alcohol intake: never Alcohol use details: rarely Substance use: never Substance use type: does not use Do You Feel Safe in your Home?: Yes Lack of Transportation: No Lack of Food: Never True Current Housing: I Have Housing Concerned About Future Housing: No Difficulty Paying Gas/Electric Bills: No Difficulty Paying for Meds: No Currently Unemployed: No Education: Associate Degree Difficulty w/ Childcare or Family Care: No Living arrangements: with family Spiritual care concerns: No Anes - Eval Final PreProcedure Day of Procedure 07/22/25 09:49 Patient weight: obese Lungs: normal air movement Airway: Mallampati scale class II Neurological: alert and oriented Last oral intake: >/= 8 hours ASA classification: III Emergent: no Anesthetic plan: proceed Anesthesia type and monitoring: general ETT and standard monitoring Results Review: All pre-operative results and documents have been reviewed as part of the pre- operative evaluation. Hyperlipidemia, DM fsbs 180, BMI 30, suspect [place] but never had sleep study. Pt can ride bike 10 miles, no cp or sob. Informed Consent: The patient's anesthetic plan and its attendant risks and benefits were discussed with the patient/family/POA. Questions were solicited and answers provided to the satisfaction of the patient/family/POA.
[2025-07-22] MEDS: SODIUM CHLORIDE 0.9% IV 1,000 ML 125 ML IV CONT (10:35)
[2025-07-22] MEDS: LIDO 1%/EPINEPHRINE 1:100,000 20 ML VIAL 30 ML INFILTRATE (10:36)
[2025-07-22] MEDS: BUPivacaine HCL 0.5% 10 ML AMP 30 ML INFILTRATE (10:38)
--- NOTE | 2025-07-22 10:42 | S_PTH ---
PATIENT: Vern Andrews LOC: [id number] U#:[id number] AGE/SX: 45/M ROOM: 327 RE07/22/[address]: YOLA Rod : 1980 BED: 01 DIS: 07/23/2025 SPEC #: [id number] RECD: 07/23/25 08:44 STATUS: SHANIA REQ #: [id number] FELIZ: 07/22/25 10:[address]: James Betancourt DEPT: [facility] Surgical RECD BY: Yen Stallings ENTERED: 07/23/25 08:45 SP TYPE: Surgical OTHR DR: MD Edgar Mireles MD Natalie J. Ross, PA Tissues: A - Hernia Sac Procedures: Gross and Microscopic Level 2 Hematoxylin and Eosin Stain
[2025-07-22] MEDS: KETOROLAC 15 MG/ML VIAL (*BKC) IV PUSH (10:48)
[2025-07-22] MEDS: LACTATED RINGERS 1,000 ML 30 ML IV CONT (11:12)
--- NOTE | 2025-07-22 11:19 | W.PM.PROC2 ---
Procedure Note - Detailed Date of Procedure 07/22/25 Pre-op Diagnosis Incarcerated umbilical hernia Post-op Diagnosis Same Procedure Performed Open incarcerated umbilical hernia repair without mesh. Surgeon James Betancourt MD Computer Forensics Technician KAROLYN Galarza Anesthesia General Indications Patient is a 45-year-old gentleman presented to the emergency room with an incarcerated umbilical hernia. He had been reducible up until last week. He started having severe pain in the periumbilical region and some slight erythema of the umbilical skin. CT scan abdomen pelvis showed incarcerated omentum or preperitoneal fat in the hernia sac. The defect was very small. There is inflammation of the tissue. No bowel was incarcerated. Findings The patient had ischemic preperitoneal fat and/or omentum in the small hernia defect which was incarcerated in the hernia sac. The defect measured about 1cm in diameter. Description of Procedure After informed consent was obtained patient brought to the operating room was placed supine position and general endotracheal anesthesia was administered. The abdomen was then prepped and draped usual sterile fashion. A time-out was then performed correctly identifying the patient as well as procedure to be performed. He was already on scheduled IV antibiotics. I then proceeded to make a small curved incision up around the upper part of the umbilical fold. Dissection carried deeply down through the dermis skin with a scalpel electrocautery was used to dissect down to the hernia sac. I then dissected around the hernia sac with electrocautery and then dissected around the umbilical stalk using blunt clamp dissection circumferentially. I then disconnected the hernia sac from the overlying dermis of the skin and then opened the hernia sac to find ischemic preperitoneal fat and possibly a small amount of omentum. I resected the hernia sac with electrocautery. I then amputated the ischemic fatty tissue at the level of the fascial defect and sent this tissue along with the hernia sac to pathology. The defect again measured only about 1cm. I then proceeded to close the defect primarily with 4 separate 0 Ethibond sutures taking about 1cm bites of good fascia on either side. The defect closed nicely without any tension. I then irrigated out the incision sterile saline solution hemostasis was good. I then recreated the inverted umbilicus by placing a 3-0 Vicryl suture at the umbilical skin and tacking it down to the deeper fascial structures. Interrupted 2-0 Vicryl sutures were then used to close the subcutaneous tissues and then a layer of interrupted 3-0 Vicryl sutures were placed a deep dermal fashion. The skin edges were then approximated utilizing a running subcuticular 4 Monocryl suture. The incision was then cleaned and then skin glue was applied. The patient tolerated the procedure well no complications. All sponges, needles, and instrument counts were correct at the end procedure. EBL was _10__cc. The patient was awakened and taken to recovery in stable and satisfactory condition. Implants None Estimated Blood Loss 10 Drains No Packing No Pathology Yes (Hernia sac and ischemic fatty tissue sent to pathology) Complications No immediate complications Condition Stable Disposition PACU [facility] Billing Surgery - Charge Forward: Surgery Billing
--- NOTE | 2025-07-22 12:16 | PC.NURSE ---
Returned to room per hospital bed from OR.
[2025-07-22] MEDS: oxyCODONE HCL (*CRX) 5 MG TAB IR PO (12:24)
[2025-07-22] MEDS: PANTOPRAZOLE 40 MG TABLET PO (12:25)
[2025-07-22] MEDS: HYDROcodone/acetaminophen (*CRX) 5-325 MG TABLET 1 TAB PO ×2 (17:12→21:09)
[2025-07-22] MEDS: INSULIN ASPART (*BKC) 100 UNITS/ML SUB-Q (21:09)
[2025-07-23] MEDS: SODIUM CHLORIDE 0.9% IV 1,000 ML 125 ML IV CONT (00:32)
[2025-07-23] MEDS: PIPERACILLIN/TAZOBACTAM SOD 3.375 GM in SODIUM CHLORIDE 0.9% IV 50 ML 100 ML IVPB ×2 (00:32→06:19)
[2025-07-23] MEDS: HYDROcodone/acetaminophen (*CRX) 5-325 MG TABLET 1 TAB PO ×4 (02:04→14:52)
[2025-07-23 05:36] VITALS: BP 143/98; PULSE 87; RESP 20; TEMP 36.4; O2SAT 96
[2025-07-23 06:38] LABS: Hematocrit 37.6 % (42.0-52.0); Hemoglobin 12.4 g/dL (14.0-18.0); Immature Granulocyte Percent A 0.4 % (0-0.5); Lymphocytes Absolute Auto 2.43 K/mm3 (0.9-3.2); Mean Corpuscular HGB Conc 33.0 g/dl (32-36); Mean Corpuscular Hemoglobin 26.9 pg (26-34); Mean Corpuscular Volume 81.6 fl (80-100); Nucleated Red Blood Cells Absolute Auto 0.000 K/mm3 (0.0-0.012); Nucleated Red Blood Cells Perc 0.0 % (0.0-0.2); Platelet Count Result 223 k/mm3 (150-375); Red Blood Count 4.61 M/mm3 (4.6-6.20); White Blood Count 7.5 K/mm3 (4.5-10.0)
[2025-07-23 06:59] LABS: Alanine Aminotransferase 28 U/L (6-50); Albumin Level 3.8 g/dL (3.5-5.1); Alkaline Phosphatase 72 U/L (38-126); Anion Gap 9 mmol/L (4-12); Aspartate Amino Transferase 32 U/L (17-59); Bilirubin,Total 0.4 mg/dL (0.2-1.3); Blood Urea Nitrogen 8 mg/dL (9-20); Calcium 8.8 mg/dL (8.4-10.2); Carbon Dioxide 21 mmol/L (22-30); Chloride 106 mmol/L (98-107); Estimated CRCL calculation 117 ml/min; Estimated Glomerular Filt Rate > 60; Glucose 164 mg/dL (65-110); Potassium 3.8 mmol/L (3.4-5.0); Sodium 136 mmol/L (137-145); Total Protein 6.9 g/dL (6.3-8.2)
[2025-07-23 07:59] VITALS: BP 140/99; PULSE 85; RESP 18; TEMP 36.1; O2SAT 97
[2025-07-23 08:00] VITALS: PULSE 85; RESP 18; O2SAT 97
[2025-07-23] MEDS: ENOXAPARIN 40 MG/0.4 ML SYRINGE SUB-Q (08:11)
[2025-07-23] MEDS: SIMVASTATIN 20 MG TABLET 40 MG PO (08:11)
[2025-07-23] MEDS: PANTOPRAZOLE 40 MG TABLET PO (08:11)
--- NOTE | 2025-07-23 08:28 | WPDANESPN ---
Anes - Prog Note Post-Op Date/Time: 07/23/25 08:28 Cardiovascular status: normal Respiratory status: normal Airway patency: baseline Mental status: baseline Post-Op hydration status: normal Vital Signs: Last Vital Signs Temp 36.1 C L 07/23/25 07:59 Pulse 85 07/23/25 08:00 Resp 18 07/23/25 08:00 BP 140/99 H 07/23/25 07:59 Pulse Ox 97 07/23/25 08:00 O2 Del Method Room Air 07/23/25 08:00 O2 Flow Rate 10 07/22/25 11:40 Pain Score (VAS): 2 I/O: Intake & Output 07/22/25 07/23/25 07/23/25 23:59 07:59 15:59 Intake Total 1250 200 Output Total 275 Balance 1250 -75 Laboratory Tests 07/23/25 06:14 07/23/25 06:14 07/22/25 07/22/25 07/22/25 11:25 16:53 21:00 WBC RBC Hgb Hct MCV MCH MCHC RDW Plt Count MPV Immature Gran % (Auto) Neut % (Auto) Lymph % (Auto) [place] % (Auto) Eos % (Auto) Baso % (Auto) Lymph # (Auto) [place] # (Auto) Eos # (Auto) Baso # (Auto) Abs Immat Gran (auto) Absolute Neuts (auto) Absolute Nucleated RBC Nucleated RBC % Sodium Potassium Chloride Carbon Dioxide Anion Gap BUN Creatinine Estim Creat Clear Calc Estimated GFR Glucose POC Capillary Glucose 222 H 198 H 213 H Calcium Total Bilirubin AST ALT Alkaline Phosphatase Total Protein Albumin 07/23/25 07/23/25 06:14 07:33 WBC 7.5 RBC 4.61 Hgb 12.4 L Hct 37.6 L MCV 81.6 MCH 26.9 MCHC 33.0 RDW 12.7 Plt Count 223 MPV 9.2 Immature Gran % (Auto) 0.4 Neut % (Auto) 58.5 Lymph % (Auto) 32.5 [place] % (Auto) 7.6 Eos % (Auto) 0.5 Baso % (Auto) 0.5 Lymph # (Auto) 2.43 [place] # (Auto) 0.6 Eos # (Auto) 0.0 Baso # (Auto) 0.0 Abs Immat Gran (auto) 0.03 Absolute Neuts (auto) 4.4 Absolute Nucleated RBC 0.000 Nucleated RBC % 0.0 Sodium 136 L Potassium 3.8 Chloride 106 Carbon Dioxide 21 L Anion Gap 9 BUN 8 L Creatinine 0.75 Estim Creat Clear Calc 117 Estimated GFR > 60 Glucose 164 H POC Capillary Glucose 155 H Calcium 8.8 Total Bilirubin 0.4 AST 32 ALT 28 Alkaline Phosphatase 72 Total Protein 6.9 Albumin 3.8 Post-procedural complaints: none Patient Feedback: Patient satisfied with anesthetic care.
[2025-07-23 11:32] VITALS: BP 129/95; PULSE 76; RESP 18; TEMP 37; O2SAT 98
--- NOTE | 2025-07-23 12:25 | PM.PNGS ---
Progress Note: A&P Assessment and Plan (1) Incarcerated umbilical hernia: Code(s): K42.0 - Umbilical hernia with obstruction, without gangrene Status: Acute Assessment and Plan: Pod 1 status post open umbilical hernia repair. Patient doing well today. Normal white blood cell count. Afebrile. Tolerating regular diabetic diet without nausea or vomiting. Ambulating without assistance. Voiding appropriately. Pain tolerable with oral medication. Upon exam, incision appears to be clean and dry with glue intact. Surgically stable for discharge with follow-up in 2 weeks. Plan Discussed patient's case and plan of care with Dr. Betancourt. Subjective Subjective Date/Time Seen: 07/23/25 12:25 Post Op day: 1 (Open incarcerated umbilical hernia repair without mesh) Patient reports: no new complaints, feels better, tolerating a regular diet (Diabetic) and bowel movement Interval history: Patient doing well today. WBC remains normal. Afebrile. Tolerating diabetic diet without nausea or vomiting. Voiding appropriately and ambulating without assistance. Exam GI: Inspection: distended GI Palp: Yes Soft to palpation and Yes Tenderness to palpation present (GI) (Tenderness surrounding incision and hypogastric region) Other: Incision clean and dry with glue intact. No drainage or surrounding redness. Mild ecchymosis present. No signs of infection. Objective Data Vital Signs Vital Signs: Vital Signs - 24 hr 07/22/25 12:30 07/22/25 13:00 07/22/25 14:00 Temperature 98.5 F 98.5 F 97.6 F Pulse Rate 94 93 96 Respiratory Rate 18 18 18 Blood Pressure 125/87 148/93 H 133/92 H Pulse Oximetry 93 92 94 Oxygen Delivery 07/22/25 18:00 07/22/25 20:00 07/22/25 20:28 Temperature 97.1 F L 97.7 F Pulse Rate 100 100 100 Respiratory Rate 16 20 20 Blood Pressure 133/85 137/97 H Pulse Oximetry 96 94 94 Oxygen Delivery Room Air 07/23/25 05:36 07/23/25 07:59 07/23/25 08:00 Temperature 97.5 F L 97.0 F L Pulse Rate 87 85 85 Respiratory Rate 20 18 18 Blood Pressure 143/98 H 140/99 H Pulse Oximetry 96 97 97 Oxygen Delivery Room Air 07/23/25 11:32 Temperature 98.6 F Pulse Rate 76 Respiratory Rate 18 Blood Pressure 129/95 H Pulse Oximetry 98 Oxygen Delivery Intake/Output Intake/Output: Intake & Output 07/20/25 07/21/25 07/22/25 07/23/25 23:59 23:59 23:59 23:59 Intake Total 2185.8 2500 200 Output Total 276 Balance 2185.8 2500 -76 Meds/Results Medications: Active Medications Generic Name Dose Route Start Last Admin Trade Name Freq PRN Reason Stop Dose Admin Acetaminophen 1,000 mg 07/22/25 12:07 Acetaminophen 500 Mg Tablet PO Q6H PRN Mild Pain (1-3) or Fever Hydrocodone Bitart/Acetaminophen 1 tab 07/22/25 12:07 07/23/25 09:41 Hydrocodone/Acetaminophen (*Crx) 5-325 Mg Tablet PO 1 tab Q4H PRN Administration Pain Rated 4-6 Dextrose 12.5 gm 07/21/25 15:11 Dextrose 50% 25 Gm/50 Ml Syringe IV PUSH PRN PRN Hypoglycemia Protocol Enoxaparin Sodium 40 mg 07/23/25 09:00 07/23/25 08:11 Enoxaparin 40 Mg/0.4 Ml Syringe SUB-Q 40 mg DAILY MABLE Administration Glucagon 1 mg 07/21/25 15:11 Glucagon For Inj 1 Mg Vial IM PRN PRN Hypoglycemia Protocol Glucose 15 gm 07/21/25 15:11 Glucose Oral Gel 15 Gm Of Glucse In 37.5 Gm Tube PO PRN PRN Hypoglycemia Protocol Hydralazine HCl 10 mg 07/21/25 16:42 Hydralazine Hcl 20 Mg/Ml Vial IV PUSH Q8H PRN Blood Pressure - High, >180/90 Dextrose 1,000 mls @ 100 mls/hr 07/21/25 15:11 Dextrose 5% 1,000 Ml IVPB PRN PRN Hypoglycemia Protocol Insulin Aspart 1 - 3 units 07/21/25 21:00 07/22/25 21:09 Insulin Aspart (*Bkc) 100 Units/Ml SUB-Q 1 units HS MABLE Administration Protocol Insulin Aspart 3 - 6 units 07/21/25 17:00 07/23/25 11:39 Insulin Aspart (*Bkc) 100 Units/Ml SUB-Q Not Given TIDWM ON LICENSE OF [facility] Protocol Morphine Sulfate 4 mg 07/22/25 12:07 Morphine Sulfate (*Crx) 4 Mg/Ml Inj IV PUSH Q4H PRN Pain Rated 7-10 Ondansetron HCl 4 mg 07/21/25 14:49 Ondansetron Inj 4 Mg/2 Ml Vial IV PUSH Q4H PRN Nausea Oxycodone HCl 5 mg 07/22/25 12:07 07/22/25 12:24 Oxycodone Hcl (*Crx) 5 Mg Tab Ir PO 5 mg Q4H PRN Administration Pain Rated 7-10 Pantoprazole Sodium 40 mg 07/22/25 11:30 07/23/25 08:11 Pantoprazole 40 Mg Tablet PO Not Given QAM MABLE Pantoprazole Sodium 40 mg 07/23/25 09:00 07/23/25 08:11 Pantoprazole 40 Mg Tablet PO 40 mg DAILY MABLE Administration Simvastatin 40 mg 07/23/25 09:00 07/23/25 08:11 Simvastatin 20 Mg Tablet PO 40 mg DAILY MABLE Administration Radiology Results: ITS Impressions Abdomen/Pelvis CT 07/21/25 13:21 IMPRESSION: 1. Umbilical hernia with strangulation of herniated fat causing significant inflammation intra and extraperitoneal. 2. Nonacute findings as above. Labs Labs: Laboratory Results - last 24 hr 07/22/25 07/22/25 07/23/25 16:53 21:00 06:14 WBC 7.5 RBC 4.61 Hgb 12.4 L Hct 37.6 L MCV 81.6 MCH 26.9 MCHC 33.0 RDW 12.7 Plt Count 223 MPV 9.2 Immature Gran % (Auto) 0.4 Neut % (Auto) 58.5 Lymph % (Auto) 32.5 [place] % (Auto) 7.6 Eos % (Auto) 0.5 Baso % (Auto) 0.5 Lymph # (Auto) 2.43 [place] # (Auto) 0.6 Eos # (Auto) 0.0 Baso # (Auto) 0.0 Abs Immat Gran (auto) 0.03 Absolute Neuts (auto) 4.4 Absolute Nucleated RBC 0.000 Nucleated RBC % 0.0 Sodium 136 L Potassium 3.8 Chloride 106 Carbon Dioxide 21 L Anion Gap 9 BUN 8 L Creatinine 0.75 Estim Creat Clear Calc 117 Estimated GFR > 60 Glucose 164 H POC Capillary Glucose 198 H 213 H Calcium 8.8 Total Bilirubin 0.4 AST 32 ALT 28 Alkaline Phosphatase 72 Total Protein 6.9 Albumin 3.8 07/23/25 07/23/25 07:33 11:19 WBC RBC Hgb Hct MCV MCH MCHC RDW Plt Count MPV Immature Gran % (Auto) Neut % (Auto) Lymph % (Auto) [place] % (Auto) Eos % (Auto) Baso % (Auto) Lymph # (Auto) [place] # (Auto) Eos # (Auto) Baso # (Auto) Abs Immat Gran (auto) Absolute Neuts (auto) Absolute Nucleated RBC Nucleated RBC % Sodium Potassium Chloride Carbon Dioxide Anion Gap BUN Creatinine Estim Creat Clear Calc Estimated GFR Glucose POC Capillary Glucose 155 H 169 H Calcium Total Bilirubin AST ALT Alkaline Phosphatase Total Protein Albumin
--- NOTE | 2025-07-23 13:54 | P.DS_ITS ---
DS: Admitting Diagnosis Discharge Date 07/23/25 Admitting Diagnosis - incarcerated umbilical hernia - T2DM - HLD - HTN DS: Discharge Diagnosis Discharge Diagnosis (1) Hernia, umbilical: Qualifiers: Obstruction and gangrene presence: without obstruction or gangrene Qualified Code(s): K42.9 - Umbilical hernia without obstruction or gangrene Code(s): K42.9 - Umbilical hernia without obstruction or gangrene Status: Acute (2) Diabetes mellitus: Qualifiers: Diabetes mellitus type: type 2 Diabetes mellitus skilled nursing insulin use: without manager intermediate use Diabetes mellitus complication status: without complication Qualified Code(s): E11.9 - Type 2 diabetes mellitus without complications Code(s): E11.9 - Type 2 diabetes mellitus without complications Status: Chronic (3) HLD (hyperlipidemia): Qualifiers: Hyperlipidemia type: unspecified Qualified Code(s): E78.5 - Hyp erlipidemia, unspecified Code(s): E78.5 - Hyperlipidemia, unspecified Status: Chronic (4) HTN (hypertension): Qualifiers: Hypertension type: primary hypertension Qualified Code(s): I10 - Essential (primary) hypertension Code(s): I10 - Essential (primary) hypertension Status: Acute DS: Summary Hospital Course Reason for hospitalization: - incarcerated umbilical hernia - T2DM - HLD - HTN Hospital Course: Patient is a 45 y/o M with PMH of DM2, HLD, GERD, and umbilical hernia presents here with umbilical pain and redness. Initial VS at presentation: 97.7? F, HR 88, R 18, 146/102, and 99% on RA. ED workup showed: No leukocytosis, hemoglobin 13.8, creatinine 0.68 and GFR >60, glucose 206, lactic 2.3 (repeat 1.9), and UA was turbid with 2+ glucose/trace ketones/1+ bilirubin. CT of the abdomen/pelvis showed an umbilical hernia with strangulation of hernia that causes inflammation intra and extraperitoneal, otherwise no acute findings. Patient was admitted for surgical intervention. Patient underwent open incarcerated hernia repair by Dr. Betancourt 07/22. Patient had uncomplicated postoperative course. Pain was well-controlled, tolerating a regular diet and had a BM. General surgery cleared for discharge with outpatient follow-up in 10-14 days. No further antibiotics warranted at this time. Patient was discharged with PRN [place], side effects discussed. Patient will resume home diabetes and anti-hypertensive regimen. Patient discharged home in stable condition. Status at Discharge Functional status at discharge: independent ambulation Overall status at discharge: patient is progressing back to baseline Time Spent with Patient Time attestation: Total time spent providing and/or coordinating discharge services: Exam Narrative: General: NAD Eyes: EOMI ENT: neck supple Cardiovascular: Regular rate and rhythm Respiratory: Clear to auscultation, respirations even and unlabored on RA Gastrointestinal: Soft, non tender, surgical incisions well-approximated Genitourinary: no suprapubic tenderness Musculoskeletal: No edema Skin: warm, dry Neuro: Alert. Psych: Mood appropriate DS: Data Data Completed and Pending Completed studies during hospitalization: ITS Impressions Abdomen/Pelvis CT 07/21/25 13:21 IMPRESSION: 1. Umbilical hernia with strangulation of herniated fat causing significant inflammation intra and extraperitoneal. 2. Nonacute findings as above. Pending studies at discharge: Pending at discharge 07/22/25 10:42 Surgical [PTH] Routine Labs on day of discharge: Labs from last 24 hours 07/23/25 07/23/25 07/23/25 11:19 07:33 06:14 WBC 7.5 RBC 4.61 Hgb 12.4 L Hct 37.6 L MCV 81.6 MCH 26.9 MCHC 33.0 RDW 12.7 Plt Count 223 MPV 9.2 Immature Gran % (Auto) 0.4 Neut % (Auto) 58.5 Lymph % (Auto) 32.5 [place] % (Auto) 7.6 Eos % (Auto) 0.5 Baso % (Auto) 0.5 Lymph # (Auto) 2.43 [place] # (Auto) 0.6 Eos # (Auto) 0.0 Baso # (Auto) 0.0 Abs Immat Gran (auto) 0.03 Absolute Neuts (auto) 4.4 Absolute Nucleated RBC 0.000 Nucleated RBC % 0.0 Sodium 136 L Potassium 3.8 Chloride 106 Carbon Dioxide 21 L Anion Gap 9 BUN 8 L Creatinine 0.75 Estim Creat Clear Calc 117 Estimated GFR > 60 Glucose 164 H POC Capillary Glucose 169 H 155 H Calcium 8.8 Total Bilirubin 0.4 AST 32 ALT 28 Alkaline Phosphatase 72 Total Protein 6.9 Albumin 3.8 07/22/25 07/22/25 21:00 16:53 WBC RBC Hgb Hct MCV MCH MCHC RDW Plt Count MPV Immature Gran % (Auto) Neut % (Auto) Lymph % (Auto) [place] % (Auto) Eos % (Auto) Baso % (Auto) Lymph # (Auto) [place] # (Auto) Eos # (Auto) Baso # (Auto) Abs Immat Gran (auto) Absolute Neuts (auto) Absolute Nucleated RBC Nucleated RBC % Sodium Potassium Chloride Carbon Dioxide Anion Gap BUN Creatinine Estim Creat Clear Calc Estimated GFR Glucose POC Capillary Glucose 213 H 198 H Calcium Total Bilirubin AST ALT Alkaline Phosphatase Total Protein Albumin Discharge Plan Discharge Attending physician on discharge: Tamie Vick Consulting providers: Rosa Rey; James Betancourt Discharging Clinician: Rosa Rey Anticipated Discharge Date/Time: 07/23/25 13:53 Patient Disposition: Home Activity: may shower Diet: regular Discharge Instructions: PATIENT TO TAKE HOME 1. May shower. No soaking in bath, pool, higuera, or any other body of water x 2weeks. 2. Call office for: * Wound increasingly painful or bleeding * Vomiting * Fever of greater than 101 degrees 3. If no bowel movement for three days, take 1 oz. (30 ml) Milk of Magnesia or MiraLax 17g 1 to 2 times daily. 4. No heavy lifting > 10-15 pounds x 4 weeks for hernia repairs. 5. No driving for 3 days or while taking narcotic pain medications. 6. Ice to surgical site for 48 hours (30 min on, then 30 min off). 7. Up walking 10-30 minutes three times per day. 8. Resume previous home medications. 9. Follow-up 10-14 days in office for wound check or as previously scheduled. ([phone]) 10. Oral pain medications prescription to be sent to pharmacy. Take Tylenol 500mg every 6 hours and Ibuprofen 600mg every 6 hours for the first 2 days, then as needed. Revised February 2019 Patient Instructions: Antibiotic Form Patient Language: Indonesian Stand Alone Forms: General Discharge Information Follow-up/Referrals: James Betancourt MD [Physician, General Surgery] - 2 Weeks Discharge Medications: New hydrocodone-acetaminophen 5-325 mg tablet 1 tablet PO Q4H PRN (Reason: pain) Qty: 12 0RF Continued pantoprazole 40 mg tablet,delayed release (DR/EC) 40 mg PO DAILY Qty: 90 3RF temazepam 15 mg capsule 15 mg PO QHS PRN (Reason: sleep) Qty: 30 0RF multivitamin Tablet 1 tablet PO DAILY omega-3 fatty acids-vitamin E 1,000 mg Capsule 1 cap PO DAILY niacin 1,000 mg tablet extended release 24 hr 1,000 mg PO QPM Januvia 50 mg tablet 50 mg PO QPM fenofibrate nanocrystallized 145 mg tablet 145 mg PO DAILY Qty: 90 2RF simvastatin 40 mg tablet 40 mg PO DAILY Qty: 90 2RF Ozempic 2 mg/dose (8 mg/3 mL) pen injector See Rx Instructions .ROUTE .COMPLEX Qty: 3 3RF Dose Instruction: INJECT 2MG UNDER THE SKIN WEEKLY Patient Comments: on Sundays Rx Instructions: INJECT 2MG UNDER THE SKIN WEEKLY metformin 1,000 mg tablet See Rx Instructions .ROUTE .COMPLEX Qty: 180 2RF Dose Instruction: TAKE 1 TABLET TWICE A DAY Rx Instructions: TAKE 1 TABLET TWICE A DAY Discontinued (DME) OneTouch Verio test strips Strip See Rx Instructions .Route Qty: 100 0RF Rx Instructions: Use to test blood sugar 1-2 times daily Date of admission: 07/22/25 10:29 Primary Care Provider: Edgar Rizo Admitting Provider: Rosalinda Guerrier Attending physician on admission: Rosalinda Guerrier Condition: Stable
== END 2025-07-23 15:30 | disposition home or self-care (01) | DRG 355 ==
LOC: ANHED 11:27 → ANH3MEDSUR 15:23
PROVIDERS: Student in an Organized Health Care Education/Training Program; Surgery; Admitting Provider General Practice; Emergency Provider Emergency Medicine; PCP Emergency Medicine; Visit Provider Physician Assistant
PROC: 0WQF0ZZ Repair Abdominal Wall, Open Approach (ICD-10-PCS; CPT 27125; principal; 2025-07-22 08:00)
DX: K42.9 Umbilical hernia without obstruction or gangrene (principal); E78.5 Hyperlipidemia, unspecified; I10 Essential (primary) hypertension; E11.8 Type 2 diabetes mellitus with unspecified complications; K21.9 Gastro-esophageal reflux disease without esophagitis; K58.9 Irritable bowel syndrome, unspecified; E66.9 Obesity, unspecified; F10.90 Alcohol use, unspecified, uncomplicated; Z79.84 Long term (current) use of oral hypoglycemic drugs; Z68.30 Body mass index [BMI] 30.0-30.9, adult; Z87.442 Personal history of urinary calculi
CPT/HCPCS: 36415; 74177; 80053; 81001; 82948; 83605; 83690; 83735; 85025; 85610; 85730; 88302; 96361; 96365; 96375; 99285; A9270; G0378; J0330; J1100; J1171; J1200; J1650; J1815; J1885; J2004; J2405; J2543; J2704; J3010; J7030; J7120; Q9967